=== PATIENT | male | born 1955 | race Caucasian/White ===

== ENCOUNTER 2017-06-29 16:49 | Emergency (ER) | payer BC ==
[~2017-06-29] VITALS: Ht 182.9 cm; Wt 103.9 kg
[~2017-06-29 16:49] MED LIST: ALPR0.25 PO; AMLO1CAP15 PO; ASPI325T11 PO; ATOR10TA PO; CARV3.122 PO; CARV6.252 PO; CLOP75TA PO; FLUT9.9S NS; HYDR-971 PO; HYDR12.58 PO; LEVO500T59 PO; LISI10TA2 PO; MULT-648 PO; OMEG1CAP30 PO; OXYC10TA45 PO; PRED-220 PO; TAMS0.4C2 PO; TAMS0.4C97 PO; UBID100C40 PO; VANC1PLA3 IV
[2017-06-29] MEDS ORDERED: HYDROcodone/APAP 5/325MG 1 TAB TABLET PO ONE (17:45)
--- NOTE | 2017-06-29 17:45 | PHYS DOC ---
Past Medical History Past Medical History: High Cholesterol, Hypertension, PA, Other Additional Past Medical Histor: bladder cancer Past Surgical History: Other Additional Past Surgical Histo: bladder surgery, multiple knee, ortho surgerys , hernia repair; cardiac cath Smoking: Cigarettes, Greater than 1 pack/day Alcohol Use: None Drug Use: None Adult General Chief Complaint Chief Complaint: UPPER EXTREMITY PAIN [facility] HPI Patient is a pleasant 61-year-old male who was working on top of his Jeep today placing a piece of weather stripping along the roof when he asked of the lost his balance landing on his left shoulder and neck. He denies any loss of conscious, denies any numbness and tingling to his hand only a sense of heaviness from his shoulder because it hurts too much left. He's had decreased range of motion since the injury occurred just prior to arrival. He denies any chest pain, shortness of breath, abdominal pain, headache, focal neurologic deficit, or other symptoms. Patient's pain is a moderate 5 out of 10 when he's holding his shoulder in position of comfort but a 10 of 10 with movements. Patient has not taken any medications prior to arrival. The pain is on the lateral left of his neck with no midline tenderness to palpation he admits to no drinking alcohol, denies any drug usage, denies any focal neurologic deficits even transiently or distracting injuries. Was placed in a collar prior to arrival by the nursing staff when he was triaged. Review of Systems Review of Systems Constitutional: Denies fever or chills [] Eyes: Denies change in visual acuity, redness, or eye pain [] HENT: Denies nasal congestion or sore throat [] Respiratory: Denies cough or shortness of breath [] Cardiovascular: No additional information not addressed in HPI [] GI: Denies abdominal pain, nausea, vomiting, bloody stools or diarrhea [] : Denies dysuria or hematuria [] Musculoskeletal: His main complaint is left shoulder pain and left clavicle pain left humeral pain and left neck pain Integument: Denies rash or skin lesions [] Neurologic: Denies headache, focal weakness or sensory changes [] Endocrine: Denies polyuria or polydipsia [] All other systems were reviewed and found to be within normal limits, except as documented in this note. Current Medications Current Medications Current Medications Medications (Trade) Dose Ordered Sig/Marisela Start Time Stop Time Status Last Admin Dose Admin Acetaminophen/ Hydrocodone Bitart (Lortab 5/325) 2 tab 1X ONCE 06/29/17 17:45 06/29/17 17:46 DC 06/29/17 18:13 2 TAB Allergies Allergies Allergies Coded Allergies Type Severity Reaction Last Updated Verified I S O L A T I O N *CONTACT* Allergy Unknown 02/16/16 Yes No Known Medication Allergies Allergy Unknown 02/16/16 Yes Physical Exam Physical Exam Constitutional: Well developed, well nourished, patient is c-collar obvious uncomfortable nontoxic in appearance holding his arm in a position of comfort across his chest wall HENT: Normocephalic, atraumatic, bilateral external ears normal, oropharynx moist, no oral exudates, nose normal. [] Eyes: PERRLA, EOMI, conjunctiva normal, no discharge. [] Neck: She does have some mild tenderness to the lateral aspect of his left neck but does have some midline tenderness to palpation over C5-C6 although there is no obvious signs of trauma after the collar was removed it was replaced and kept in place for the CT scan. Cardiovascular:Heart rate regular rhythm, no murmur [] Lungs & Thorax: Bilateral breath sounds clear to auscultation [] Abdomen: Bowel sounds normal, soft, no tenderness, Skin: Warm, dry, no erythema, no rash. [] Back: he has some significant tenderness over the clavicle anterior portion of the shoulder and the proximal portion of the humerus. He has decreased range of motion secondary to pain with some soft tissue swelling along the clavicle. Extremities, no cyanosis, no clubbing, no edema. he has a well-healed scar on the anterior portion of his left forearm from a prior surgery. Patient has normal sensation to light touch and proprioception over C5-T1 he has intrinsic muscle the hand are intact as well as the lumbricals when tested.[ Is normal range of motion at the elbow and wrist on the left decreased range of motion of the humerus proximally because of pain.] Neurologic: Alert and oriented X 3, normal motor function, normal sensory function, no focal deficits noted. [] Psychologic: Affect normal, judgement normal, mood normal. [] Current Patient Data Vital Signs Vital Signs Date Time Temp Pulse Resp B/P (MAP) Pulse Ox O2 Delivery O2 Flow Rate FiO2 06/29/17 19:00 192/84 (120) 06/29/17 18:13 20 97 06/29/17 18:00 88 Room Air 06/29/17 17:34 98.2 98.2 EKG EKG [] Radiology/Procedures Radiology/Procedures []2 view of the patient's humerus left completed at 6:57 PM 06/29/2017 demonstrates no acute abdomen on within the humerus itself by concern is looking at the glenohumeral rim is at Bankart's lesion. Patient still has marked pain with external rotation and abduction at the shoulder Review shoulder films. At 6:56 PM 06/29/2017 also read by me demonstrate no fracture along the clavicle, the before meals joint looks intact and entirely line. The scapula ribs humerus although contact my concern again is the gleno humeral he will rim with a bankcart's lesion. I've explained my concern to the family and ordered a CT noncontrast of the shoulder to look at this disease process. Patient is feeling more comfortable as long as he does not move his shoulder. [facility] [address] [place] [address] IMAGING REPORT Signed PATIENT: AAMIR ESPARZA ACCOUNT: [id number] : 1955 LOCATION: ER AGE: 61 SEX: M EXAM STATUS: REG ER ORD. PHYSICIAN: CRESENCIO ABEL MD REASON: shoulder pain with suspected fracture PROCEDURE: CT UPPR EXTREMTY WO CONTRST LT CT left shoulder without contrast COMPARISON: Left shoulder x-rays June 29, 2017. HISTORY: Fall, left shoulder pain. FINDINGS: No fracture or dislocation of the shoulder. Mild glenohumeral osteoarthritis with mild glenoid osteophyte and joint space narrowing. Acromioclavicular arthrosis with type II acromial morphology with mild acromion spur and clavicle osteophyte. Noncontrast CT imaging has limited sensitivity for characterization of rotator cuff pathology. Tiny ossicle adjacent of the coracoid. Left coronary calcified plaque. Imaged chest demonstrate pulmonary emphysema. IMPRESSION: No acute osseous injury of the left shoulder. Electronically signed by: Eugenia Rosa MD (06/29/2017 8:15 PM) [facility] DICTATED and SIGNED BY: EUGENIA ROSA MD DATE: 06/29/172008 CC: CRESENCIO ABEL MD; Roderick BAILEY MD ~ [facility] [address] [place] [address] IMAGING REPORT Signed PATIENT: AAMIR ESPARZA ACCOUNT: [id number] : 1955 LOCATION: ER AGE: 61 SEX: M EXAM STATUS: REG ER ORD. PHYSICIAN: CRESENCIO ABEL MD REASON: fall PROCEDURE: CT CERVICAL SPINE WO CONTRAST CT cervical spine without contrast HISTORY: Fall with left neck and shoulder pain. COMPARISON: CT cervical spine December 27, 2003. TECHNIQUE: Helical noncontrast CT imaging of the cervical spine was acquired. FINDINGS: Craniocervical junction intact. ACDF C5-C6 no loosening of the hardware, there is interbody bone fusion present. Cervical vertebral body height and alignment intact. No fracture of the cervical spine. Left apical calcified granuloma. Right mastoid fluid. Maxillary sinus fluid and possible left sinus cyst. Carotid artery calcified plaque. Multilevel disc osteophytes and facet osteophytes with multilevel moderate to severe neural foraminal stenoses, there is spinal canal stenosis at C4-C5 and C6-C7 due to bulky disc osteophytes. Spinal canal stenosis at C5-C6 due to endplate osteophytes status post discectomy. IMPRESSION: 1. No acute osseous injury of the cervical spine. Cervical disc disease. ACDF C5-C6. See discussion above. 2. Right mastoid fluid. 3. Bilateral maxillary sinus fluid could be sinusitis. Exposure: One or more of the following individualized dose reduction techniques were utilized for this examination: 1. Automated exposure control 2. Adjustment of the mA and/or kV according to patient size 3. Use of iterative reconstruction technique Electronically signed by: Eugenia Rosa MD (06/29/2017 6:30 PM) [facility] DICTATED and SIGNED BY: EUGENIA ROSA MD DATE: 06/29/17 2072 CC: CRESENCIO ABEL MD; Roderick BAILEY MD ~ Course & Med Decision Making Course & Med Decision Making Pertinent Labs and Imaging studies reviewed. (See chart for details) []Since shoulder film, humeral film and CT of the neck involved in return. According to the radiologist the CT of the neck demonstrated no occult or acute fracture. Patient was removed from the c-collar at approximately 6:30 PM. Is markedly improved with oral narcotics although pain is still significant with range of motion. Reviewing the films of the shoulder and the humerus my concern is a Bankart's lesion of the left shoulder patient will require CT without contrast to rule out inter-articular fracture. he's been alerted to the requirements of this CAT scan and is waiting the results. Time is now 7:20 PM He is a shoulders, back at approximately 8:30 PM demonstrates no acute fracture with in the shoulder joint. I concern now is given his pain with range of motion is a repeat rotator cuff injury. Understanding also has had a prior history of rotator cuff that particular side unfortunately female reinjured this or shoulder. He'll be given a sling pain medications and follow-up with his orthopedic surgeon to Dr. Bailey's office. Dragon Disclaimer Dragmiranda Disclaimer This electronic medical record was generated, in whole or in part, using a voice recognition dictation system. Departure Departure Impression: Primary Impression: Left shoulder strain Additional Impressions: Injury of left rotator cuff Sprain of cervical neck Disposition: 01 HOME, SELF-CARE Condition: IMPROVED Referrals: Roderick BAILEY MD (PCP) Patient Instructions: Shoulder Instability, Multidirectional with Rehab- [facility], Shoulder Pain, Shoulder Sprain Additional Instructions: discharge: I've spoken with the patient and/or caregivers. I've explained the patient's condition, diagnosis and treatment plan based on information available to me at this time. I've answered the patient's and/or caregivers questions and addressed any concerns. The patient and/or caregivers have a good understanding the patient's diagnosis, condition and treatment plan as can be expected at this point. Vital signs have been stabilized. The patient's condition is stable for discharge from the emergency department. The patient will pursue further outpatient evaluation with her primary care provider or other designated consulting physician as outlined in the discharge instructions. Patient and/or caregivers are agreeable to this plan of care and follow-up instructions have been explained in detail. The patient and/or caregivers have received these instructions in written format and expressed understanding of these discharge instructions. The patient and her caregivers are aware that if any significant change in condition or worsening of symptoms should prompt him to immediately return to this of the closest emergency department. If an emergent department is not readily available I would encourage him to call 911. Scripts Naproxen (NAPROSYN) 500 Mg Tablet 1 TAB PO BID, #14 TAB 1 Refill Prov: CRESENCIO ABEL MD 06/29/17 Hydrocodone Bit/Acetaminophen (HYDROCODONE-APAP 5-325 ) 1 Each Tablet 1-2 TAB PO PRN Q6HRS Y for PAIN for 5 Days, #10 TAB 0 Refills Prov: CRESENCIO ABEL MD 06/29/17 Problem Qualifiers CRESENCIO ABEL MD Jun 29, 2017 17:45
--- NOTE | 2017-06-29 18:34 | RAD ---
CT cervical spine without contrast HISTORY: Fall with left neck and shoulder pain. COMPARISON: CT cervical spine December 27, 2003. TECHNIQUE: Helical noncontrast CT imaging of the cervical spine was acquired. FINDINGS: Craniocervical junction intact. ACDF C5-C6 no loosening of the hardware, there is interbody bone fusion present. Cervical vertebral body height and alignment intact. No fracture of the cervical spine. Left apical calcified granuloma. Right mastoid fluid. Maxillary sinus fluid and possible left sinus cyst. Carotid artery calcified plaque. Multilevel disc osteophytes and facet osteophytes with multilevel moderate to severe neural foraminal stenoses, there is spinal canal stenosis at C4-C5 and C6-C7 due to bulky disc osteophytes. Spinal canal stenosis at C5-C6 due to endplate osteophytes status post discectomy. IMPRESSION: 1. No acute osseous injury of the cervical spine. Cervical disc disease. ACDF C5-C6. See discussion above. 2. Right mastoid fluid. 3. Bilateral maxillary sinus fluid could be sinusitis. Exposure: One or more of the following individualized dose reduction techniques were utilized for this examination: 1. Automated exposure control 2. Adjustment of the mA and/or kV according to patient size 3. Use of iterative reconstruction technique Electronically signed by: Nando Rosa MD (06/29/2017 6:30 PM) [facility]
--- NOTE | 2017-06-29 20:18 | RAD ---
CT left shoulder without contrast COMPARISON: Left shoulder x-rays June 29, 2017. HISTORY: Fall, left shoulder pain. FINDINGS: No fracture or dislocation of the shoulder. Mild glenohumeral osteoarthritis with mild glenoid osteophyte and joint space narrowing. Acromioclavicular arthrosis with type II acromial morphology with mild acromion spur and clavicle osteophyte. Noncontrast CT imaging has limited sensitivity for characterization of rotator cuff pathology. Tiny ossicle adjacent of the coracoid. Left coronary calcified plaque. Imaged chest demonstrate pulmonary emphysema. IMPRESSION: No acute osseous injury of the left shoulder. Electronically signed by: Nando Rosa MD (06/29/2017 8:15 PM) [facility]
--- NOTE | 2017-06-29 20:38 | RAD ---
Left shoulder frontal internal and external rotated and scapular x-rays HISTORY: Fall, left shoulder pain. FINDINGS: No fracture or dislocation of the shoulder. Mild osteoarthritis acromioclavicular joint with mild clavicle osteophyte. Soft tissues unremarkable. IMPRESSION: No acute osseous injury. Electronically signed by: Nando Rosa MD (06/29/2017 8:36 PM) [facility]
[2017-06-29 20:40] VITALS: BP 184/94
[2017-06-29] MEDS ORDERED: NAPR500T PO (20:40)
[2017-06-29] MEDS ORDERED: HYDR-2758 PO (20:40)
--- NOTE | 2017-06-30 08:03 | RAD ---
EXAM: Left humerus 2 views. HISTORY: Fall with left humeral pain. COMPARISON: None. FINDINGS: No fractures are identified. Acromioclavicular osteoarthritis is mild. There appears to be mild superior subluxation of the humerus, though this may be projectional. Joint spaces and alignment of the left elbow appear maintained. Surgical clips project within the proximal forearm. IMPRESSION: 1. No fracture. 2. Correlate for rotator cuff arthropathy.
== END 2017-06-29 20:40 | disposition home or self-care (01) ==
LOC: ER 16:49
DX: S46.012A Strain of muscle(s) and tendon(s) of the rotator cuff of left shoulder, initial encounter (principal); S13.4XXA Sprain of ligaments of cervical spine, initial encounter; E78.00 Pure hypercholesterolemia, unspecified; I10 Essential (primary) hypertension; I25.2 Old myocardial infarction; F17.210 Nicotine dependence, cigarettes, uncomplicated; Z91.041 Radiographic dye allergy status; Z98.890 Other specified postprocedural states; W01.0XXA Fall on same level from slipping, tripping and stumbling without subsequent striking against object, initial encounter; Y93.89 Activity, other specified; Y99.8 Other external cause status; Y92.69 Other specified industrial and construction area as the place of occurrence of the external cause
CPT/HCPCS: 72125; 73030; 73060; 73200; 99284-25

== ENCOUNTER → 2018-01-27 | Outpatient (CLI) | payer BC | END | disposition home or self-care (01) | LOC: US 15:53 | DX: L02.215 Cutaneous abscess of perineum (principal) | CPT/HCPCS: 76870 ==

== ENCOUNTER → 2018-10-07 | Outpatient (CLI) | payer BC ==
[~2018-10-07] MED LIST changes: +AMLO5TAB10 PO; +AMOX1TAB61 PO; +CARV3.1210 PO; -CARV3.122 PO; +CARV6.2511 PO; -CARV6.252 PO; +CONTRAST GIVEN. MC PRN; +HYDR-2761 PO; +HYDR-3164 PO; -HYDR-971 PO; +IOHEXOL 240 MG/ML 50ML VIAL. PO ONE; +IOHEXOL 300 MG/ML 100ML VIAL. IV ONE; +LACT1CAP19 PO; +LISI-130 PO; +NAPR-683 PO; -OXYC10TA45 PO; +OXYC10TA46 PO
--- NOTE | 2018-10-07 17:25 | RAD ---
PQRS Compliance statement: One or more of the following individualized dose reduction techniques were utilized for this examination: 1. Automated exposure control. 2. Adjustment of the mA and/or kV according to patient size. 3. Use of iterative reconstruction technique. Indication:GENERALIZED ABD PAIN, [id number] 60ML, NO PRIORS TECHNIQUE: CT abdomen and pelvis with IV contrast with multiplanar reformats. COMPARISON: None FINDINGS: Heart is normal in size. No pericardial or pleural effusion. Consolidation is seen in the visualized right middle lobe. Liver, spleen, gallbladder, pancreas, kidneys within normal limits. 1.5 x 1.4 cm nodule is seen in the right abdomen gland. Diffuse nodular thickening is seen of the left adrenal gland. Moderate diffuse atherosclerotic disease of the infrarenal aorta and bilateral iliac arteries. No free pelvic fluid or ascites. Sigmoid diverticulosis. Short segment circumferential wall thickening is seen of the proximal sigmoid colon with pericolonic inflammatory changes. No bowel obstruction. The prostate and seminal vesicles show no large mass. Urinary bladder is within normal limits. No suspicious bony lesion. IMPRESSION: 1. Short segment circumferential nodular thickening of the proximal sigmoid colon with pericolonic inflammatory changes likely diverticulitis. Nonemergent colonoscopy recommended after acute phase resolves to rule out underlying mass. 2. Nodular thickening of the bilateral adrenal glands likely adrenal adenoma. Nonemergent MRI of the abdomen with IV contrast recommended for definite confirmation. Electronically signed by: José Roberts DO (10/07/2018 5:22 PM) [facility]
== END | disposition home or self-care (01) ==
LOC: CT 15:28
PROVIDERS: ATTEND Family Medicine
DX: K57.30 Diverticulosis of large intestine without perforation or abscess without bleeding (principal); I70.0 Atherosclerosis of aorta; I70.8 Atherosclerosis of other arteries
CPT/HCPCS: 74177; Q9966; Q9967

== ENCOUNTER 2018-11-20 12:42 | Inpatient (IN) | payer BC ==
[~2018-11-20] VITALS: Ht 172.7 cm; Wt 104.3 kg
[~2018-11-20 12:42] MED LIST changes: -AMLO5TAB10 PO; -AMOX1TAB61 PO; -CONTRAST GIVEN. MC PRN; -IOHEXOL 240 MG/ML 50ML VIAL. PO ONE; -IOHEXOL 300 MG/ML 100ML VIAL. IV ONE; -LACT1CAP19 PO; -LISI-130 PO
[2018-11-20 13:10] LABS: BASO # 0.1 x10^3/uL (0.0-0.2); BASO % 1 % (0-3); EOS # 0.1 x10^3/uL (0.0-0.7); EOS % 1 % (0-3); HEMATOCRIT 47.9 % (39.0-53.0); HEMOGLOBIN 15.9 g/dL (13.0-17.5); LYMPH # 1.9 x10^3/uL (1.0-4.8); LYMPH % 11 % (24-48); MEAN CORPUSCULAR HEMOGLOBIN 32 pg (25-35); MEAN CORPUSCULAR HGB CONC 33 g/dL (31-37); MEAN CORPUSCULAR VOLUME 98 fL (79-100); MONO # 1.6 x10^3/uL (0.0-1.1); MONO % 10 % (0-9); NEUT % 78 % (31-73); PLATELET COUNT 217 x10^3/uL (140-400); RED CELL DISTRIBUTION WIDTH 13.9 % (11.5-14.5); WHITE BLOOD COUNT 16.7 x10^3/uL (4.0-11.0)
[2018-11-20 13:12] LABS: BILIRUBIN,URINE SMALL (NEG); CLARITY,URINE CLEAR; NITRITE,URINE NEGATIVE (NEG); PH,URINE 5.5; PROTEIN,URINE 100 mg/dL (NEG-TRACE); UROBILINOGEN,URINE 0.2 mg/dL (0.2 mg/dL)
[2018-11-20 13:19] LABS: COLOR,URINE YELLOW
[2018-11-20 13:20] LABS: HYALINE CASTS, URINE MODERATE /HPF; SQUAMOUS EPITHELIAL CELL,UR FEW /LPF
[2018-11-20 13:21] LABS: CALCIUM 9.1 mg/dL (8.5-10.1); CREATININE 1.4 mg/dL (0.7-1.3); POTASSIUM 4.1 mmol/L (3.5-5.1)
[2018-11-20 13:23] LABS: BACTERIA,URINE FEW /HPF (0-FEW)
[2018-11-20 13:26] LABS: ALBUMIN 3.8 g/dL (3.4-5.0); DIRECT BILIRUBIN 0.2 mg/dL (0.0-0.2); TOTAL BILIRUBIN 0.6 mg/dL (0.2-1.0); TOTAL PROTEIN 7.5 g/dL (6.4-8.2)
[2018-11-20 13:37] LABS: % ATYL 1 % (0-0); % BANDS 7 % (0-9); % LYMPHS 12 % (24-48); % MONOS 8 % (0-10); % SEGS 72 % (35-66); PLT ESTIMATE ADEQUATE (ADEQUATE)
[2018-11-20] MEDS ORDERED: IOHEXOL 300 MG/ML 100ML VIAL. IV ONE (14:15)
[2018-11-20] MEDS ORDERED: CONTRAST GIVEN. MC PRN (14:30)
[2018-11-20] MEDS ORDERED: IV NORMAL SALINE 1000ML BAG 1,000 ML IV SCH (15:08)
--- NOTE | 2018-11-20 15:09 | RAD ---
Examination: CT ABD PELV W/ IV CONTRST ONLY History: llq pain; Omni 300, 60ml Comparison/Correlation: None Findings: Axial images of the abdomen and pelvis were obtained following IV contrast. Sagittal and coronal reformatted images provided. Visualized lung bases are clear. Liver, spleen, pancreas, and kidneys are unremarkable. Gallbladder fossa is unremarkable. Nodular appearance of the adrenal glands is evident and probably represents a benign adenomatous involvement. Marked inflammatory findings about the proximal sigmoid colon is present. There is fluid noted about the sigmoid colon but no definite loculated collection. Diverticulosis is notable. Small loculated air-fluid collection is evident inferior to the proximal sigmoid colon measuring up to 1.5 cm diameter best seen on coronal image 24 and axial image 73. Few additional droplets of gas are noted about this collection of gas. Urinary bladder is unremarkable. Moderate L5/S1 disc space narrowing is present. The joint degenerative changes of the low lumbar spine from L4 to S1 are evident. Mild prostatomegaly is present with transverse prostate measurement of 5 cm. Impression: Marked sigmoid diverticulitis. Extraluminal gas with compatible with focal perforation. No significant abscess collection. Consider interval follow-up to assess resolution and to exclude mass lesion. Discussed with Dr. Darling of the emergency Department. Prostatomegaly. PQRS Compliance Statement: One or more of the following individualized dose reduction techniques were utilized for this examination: 1. Automated exposure control 2. Adjustment of the mA and/or kV according to patient size 3. Use of iterative reconstruction technique Electronically signed by: Josue Ryan MD (11/20/2018 3:06 PM) [facility]
[2018-11-20] MEDS ORDERED: PIP/TAZO PER PHARMACY MC PRN (15:15)
[2018-11-20] MEDS ORDERED: PIPERACILLIN/TAZOBACTAM 3.375 GM in IV NORMAL SALINE 50ML 50 ML IV ONE (15:45)
--- NOTE | 2018-11-20 16:08 | PHYS DOC ---
Past Medical History Past Medical History: No Pertinent History Additional Past Medical Histor: bladder cancer Past Surgical History: No Surgical History Additional Past Surgical Histo: bladder surgery, multiple knee, ortho surgerys , hernia repair; cardiac cath Alcohol Use: None Drug Use: None Adult General Chief Complaint Chief Complaint: ABDOMINAL PAIN HPI HPI 63-year-old male presenting to the emergency department today with abdominal pain in the left lower quadrant since Friday at about 8 AM. He denies any alleviating or exacerbating factors. It radiates up into his belly and on got worse. It is a sharp shooting pain. It is moderate in severity. He denies vomiting fevers or chills. Past medical history: Hypertension chronic sinusitis hyperlipidemia and history of shoulder. Surgical history: History of heart stenting neck surgery back surgery and knee surgery. He did have a left femoral artery removal with regard to in the past. Social history: Smoker, drinks occasionally. Review of systems is negative for chest pain fevers chills shortness of breath headache. All other review of systems is negative. ED course: 63-year-old male presenting the emergency department today with left lower quadrant abdominal pain. Workup reveals acute diverticulitis with microperforation. No abscess formation. Blood work shows leukocytosis. Urinalysis not suggestive of infection. Chemistry panel shows mildly elevated creatinine. Similar to previous. I spoke with Dr. Pillai our surgeon about the patient at about 3pm. He agrees with plan. Patient was placed nothing by mouth. We will give the patient IV antibiotics started him on IV fluids and obtained a bed in the hospital. Spoke with Dr. Stephens who accepts patient for admission. Basic bridge orders placed. Current Medications Current Medications Current Medications Medications (Trade) Dose Ordered Sig/Marisela Start Time Stop Time Status Last Admin Dose Admin Info (CONTRAST GIVEN -- Rx MONITORING) 1 each PRN DAILY PRN 11/20/18 14:30 11/22/18 14:29 Iohexol (Omnipaque 300 Mg/ml) 60 ml 1X ONCE 11/20/18 14:15 11/20/18 14:33 DC 11/20/18 14:28 60 ML Piperacillin Sod/ Tazobactam Sod (Zosyn Per Pharmacy) 1 each PRN DAILY PRN 11/20/18 15:15 UNV Piperacillin Sod/ Tazobactam Sod 3.375 gm/Sodium Chloride 50 ml @ 100 mls/hr 1X ONCE 11/20/18 15:45 11/20/18 16:14 11/20/18 15:41 100 MLS/HR Sodium Chloride 1,000 ml @ 120 mls/hr Q8H20M 11/20/18 15:08 11/20/18 21:07 11/20/18 15:41 120 MLS/HR Allergies Allergies Allergies Coded Allergies Type Severity Reaction Last Updated Verified I S O L A T I O N *CONTACT* Allergy Unknown 02/16/16 Yes No Known Medication Allergies Allergy Unknown 02/16/16 Yes Physical Exam Physical Exam Constitutional: Well developed, well nourished, no acute distress, non-toxic appearance. [] HENT: Normocephalic, atraumatic, bilateral external ears normal, oropharynx moist, no oral exudates, nose normal. [] Eyes: PERRLA, EOMI, conjunctiva normal, no discharge. [] Neck: Normal range of motion, no tenderness, supple, no stridor. [] Cardiovascular:Heart rate regular rhythm, no murmur [] Lungs & Thorax: Bilateral breath sounds clear to auscultation [] Abdomen: Bowel sounds normal, soft, llq ttp without rebound tenderness or guarding , no masses, no pulsatile masses. [] Skin: Warm, dry, no erythema, no rash. [] Back: No tenderness, no CVA tenderness. [] Extremities: No tenderness, no cyanosis, no clubbing, ROM intact, no edema. [] Neurologic: Alert and oriented X 3, normal motor function, normal sensory function, no focal deficits noted. [] Psychologic: Affect normal, judgement normal, mood normal. [] Current Patient Data Vital Signs Vital Signs Date Time Temp Pulse Resp B/P (MAP) Pulse Ox O2 Delivery O2 Flow Rate FiO2 11/20/18 12:42 97.6 70 16 108/58 (75) 98 Room Air 97.6 Lab Values Laboratory Tests Test 11/20/18 12:45 11/20/18 13:00 Urine Collection Type Unknown Urine Color Yellow Urine Clarity Clear Urine pH 5.5 Urine Specific [place] 1.025 Urine Protein 100 mg/dL (NEG-TRACE) Urine Glucose (UA) Negative mg/dL (NEG) Urine Ketones (Stick) Negative mg/dL (NEG) Urine Blood Negative (NEG) Urine Nitrite Negative (NEG) Urine Bilirubin Small (NEG) Urine Urobilinogen Dipstick 0.2 mg/dL (0.2 mg/dL) Urine Leukocyte Esterase Small (NEG) Urine RBC 3-5 /HPF (0-2) Urine WBC 6-10 /HPF (0-4) Urine Squamous Epithelial Cells Few /LPF Urine Bacteria Few /HPF (0-FEW) Urine Hyaline Casts Moderate /HPF Urine Mucus Marked /LPF White Blood Count 16.7 x10^3/uL (4.0-11.0) H Red Blood Count 4.90 x10^6/uL (4.30-5.70) Hemoglobin 15.9 g/dL (13.0-17.5) Hematocrit 47.9 % (39.0-53.0) Mean Corpuscular Volume 98 fL (79-100) Mean Corpuscular Hemoglobin 32 pg (25-35) Mean Corpuscular Hemoglobin Concent 33 g/dL (31-37) Red Cell Distribution Width 13.9 % (11.5-14.5) Platelet Count 217 x10^3/uL (140-400) Neutrophils (%) (Auto) 78 % (31-73) H Lymphocytes (%) (Auto) 11 % (24-48) L Monocytes (%) (Auto) 10 % (0-9) H Eosinophils (%) (Auto) 1 % (0-3) Basophils (%) (Auto) 1 % (0-3) Neutrophils # (Auto) 13.0 x10^3uL (1.8-7.7) H Lymphocytes # (Auto) 1.9 x10^3/uL (1.0-4.8) Monocytes # (Auto) 1.6 x10^3/uL (0.0-1.1) H Eosinophils # (Auto) 0.1 x10^3/uL (0.0-0.7) Basophils # (Auto) 0.1 x10^3/uL (0.0-0.2) Segmented Neutrophils % 72 % (35-66) H Band Neutrophils % 7 % (0-9) Lymphocytes % 12 % (24-48) L Atypical Lymphocytes % (Manual) 1 % (0-0) H Monocytes % 8 % (0-10) Platelet Estimate Adequate (ADEQUATE) Sodium Level 137 mmol/L (136-145) Potassium Level 4.1 mmol/L (3.5-5.1) Chloride Level 98 mmol/L (98-107) Carbon Dioxide Level 29 mmol/L (21-32) Anion Gap 10 (6-14) Blood Urea Nitrogen 21 mg/dL (8-26) Creatinine 1.4 mg/dL (0.7-1.3) H Estimated GFR (Cockcroft-Gault) 51.0 Glucose Level 112 mg/dL (70-99) H Calcium Level 9.1 mg/dL (8.5-10.1) Total Bilirubin 0.6 mg/dL (0.2-1.0) Direct Bilirubin 0.2 mg/dL (0.0-0.2) Aspartate Amino Transferase (AST) 15 U/L (15-37) Alanine Aminotransferase (ALT) 21 U/L (16-63) Alkaline Phosphatase 68 U/L (46-116) Troponin I Quantitative < 0.017 ng/mL (0.000-0.055) Total Protein 7.5 g/dL (6.4-8.2) Albumin 3.8 g/dL (3.4-5.0) Lipase 331 U/L (73-393) Laboratory Tests 11/20/18 13:00 Laboratory Tests 11/20/18 13:00 EKG EKG [] Radiology/Procedures Radiology/Procedures [] Course & Med Decision Making Course & Med Decision Making Pertinent Labs and Imaging studies reviewed. (See chart for details) [] Dragon Disclaimer Dragon Disclaimer This electronic medical record was generated, in whole or in part, using a voice recognition dictation system. Departure Departure Impression: Primary Impression: Diverticulitis Additional Impression: Perforation bowel Disposition: ADMITTED INPATIENT Admitting Physician: Aidee Stephens Condition: STABLE Referrals: Roderick SAINZ MD (PCP) Problem Qualifiers AMAN KRAUSE MD Nov 20, 2018 16:08
[2018-11-20 20:08] VITALS: BP 132/66
[2018-11-20] MEDS: PIPERACILLIN/TAZOBACTAM 3.375 GM in IV NORMAL SALINE 50ML 50 ML IV SCH (20:20)
[2018-11-20 22:21] VITALS: BP 135/62
[2018-11-21] VITALS (7 sets, daily range): BP systolic 111–160; BP diastolic 43–75
[2018-11-21] MEDS: PIPERACILLIN/TAZOBACTAM 3.375 GM in IV NORMAL SALINE 50ML 50 ML IV SCH ×4 (02:35→17:38)
[2018-11-21] MEDS ORDERED: fentaNYL PF VIAL 100 MCG/2 ML VIAL IV PRN (03:30)
[2018-11-21] MEDS: fentaNYL PF VIAL 100 MCG/2 ML VIAL IV PRN ×4 (03:35→22:25)
[2018-11-21 04:21] LABS: BASO % 0 % (0-3); EOS # 0.1 x10^3/uL (0.0-0.7); EOS % 1 % (0-3); HEMATOCRIT 44.4 % (39.0-53.0); HEMOGLOBIN 14.8 g/dL (13.0-17.5); LYMPH # 1.8 x10^3/uL (1.0-4.8); LYMPH % 16 % (24-48); MEAN CORPUSCULAR HEMOGLOBIN 32 pg (25-35); MEAN CORPUSCULAR HGB CONC 33 g/dL (31-37); MEAN CORPUSCULAR VOLUME 97 fL (79-100); MONO # 1.1 x10^3/uL (0.0-1.1); MONO % 11 % (0-9); NEUT # 7.6 x10^3uL (1.8-7.7); NEUT % 71 % (31-73); PLATELET COUNT 167 x10^3/uL (140-400); RED BLOOD COUNT 4.58 x10^6/uL (4.30-5.70); RED CELL DISTRIBUTION WIDTH 13.6 % (11.5-14.5); WHITE BLOOD COUNT 10.7 x10^3/uL (4.0-11.0)
[2018-11-21 04:47] LABS: CALCIUM 8.5 mg/dL (8.5-10.1); CREATININE 1.4 mg/dL (0.7-1.3); POTASSIUM 3.6 mmol/L (3.5-5.1)
--- NOTE | 2018-11-21 07:29 | NUR ---
Pt wanting to eat and drink during the noc. Pt informed of NPO status due to perforation and possible complications and keeping pain in control at this time. Pt verbalized understanding. Pt continues with IV fluids at this time. No further complaints at this time.
--- NOTE | 2018-11-21 09:45 | PDOC2 ---
CONSULT Date of Consult Date of Consult DATE: 11/21/18 TIME: 08:30 Reason for Consult Reason for Consult: acute diverticulitis with perforation Referring Physician Referring Physician: Dr Bailey Identification/Chief Complaint Chief Complaint LLQ pain Source Source: Chart review, Patient History of Present Illness Reason for Visit: Pt is a 63 yo male with four day hx of LLQ abdominal pain. Seen in the ED last noc and CT showed acute diverticulitis of the sigmoid colon with surrounding inflammation and extraluminal gas. Denies similar previous episode. Has had a colonoscopy and was told "everything's OK, come back in ten years. Past Medical History Cardiovascular: CAD, HTN, [place] Pulmonary: No pertinent hx GI: GERD Heme/Onc: No pertinent hx Hepatobiliary: No pertinent hx Psych: No pertinent hx Musculoskeletal: low back pain, Osteoarthritis Rheumatologic: No pertinent hx Infectious disease: No pertinent hx Renal/: Bladder Ca. Endocrine: Other Past Surgical History Past Surgical History: Other (bladder surgery, multiple ortho procedures) Family History Family History: No Significant Social History <1 pack per day ALCOHOL: none Drugs: None Current Problem List Problem List Problems Medical Problems: (1) Diverticulitis Status: Acute (2) Perforation bowel Status: Acute Current Medications Current Medications Current Medications Iohexol (Omnipaque 300 Mg/ml) 60 ml 1X ONCE IV Last administered on 11/20/18at 14:28; Start 11/20/18 at 14:15; Stop 11/20/18 at 14:33; Status DC Info (CONTRAST GIVEN -- Rx MONITORING) 1 each PRN DAILY PRN MC SEE COMMENTS; Start 11/20/18 at 14:30; Stop 11/22/18 at 14:29 Piperacillin Sod/ Tazobactam Sod (Zosyn Per Pharmacy) 1 each PRN DAILY PRN MC SEE COMMENTS; Start 11/20/18 at 15:15; Status UNV Sodium Chloride 1,000 ml @ 120 mls/hr Q8H20M IV Last administered on at 15:41; Start 11/20/18 at 15:08; Stop 11/20/18 at 21:07; Status DC Piperacillin Sod/ Tazobactam Sod 3.375 gm/Sodium Chloride 50 ml @ 100 mls/hr 1X ONCE IV Last administered on 11/20/18at 15:41; Start 11/20/18 at 15:45; Stop 11/20/18 at 16:14; Status DC Piperacillin Sod/ Tazobactam Sod 3.375 gm/Sodium Chloride 50 ml @ 100 mls/hr Q6HRS IV Last administered on 11/21/18at 07:08; Start 11/20/18 at 18:30 Fentanyl Citrate (Fentanyl 2ml Vial) 50 mcg PRN Q3HRS PRN IV SEVERE PAIN Last administered on 11/21/18at 09:12; Start 11/21/18 at 03:30 Fentanyl Citrate (Fentanyl 2ml Vial) 25 mcg PRN Q3HRS PRN IV MILD PAIN; Start 11/21/18 at 03:30 Active Scripts Active Naprosyn (Naproxen) 500 Mg Tablet 1 Tab PO BID Hydrocodone-Apap 5-325 (Hydrocodone Bit/Acetaminophen) 1 Each Tablet 1-2 Tab PO PRN Q6HRS PRN 5 Days Levaquin (Levofloxacin) 500 Mg Tablet 500 Mg PO DAILY Oxycontin (Oxycodone HCl) 10 Mg Tab.er.12h 10 Mg PO 6 PRN Lipitor (Atorvastatin Calcium) 10 Mg Tablet 1 Tab PO DAILY Aspirin Ec (Aspirin) 325 Mg Tablet.dr 325 Mg PO DAILYWBKFT Reported Flonase Allergy Relief (Fluticasone Propionate) 9.9 Ml [place].susp 2 Sprays NS DAILY Flomax (Tamsulosin Hcl) 0.4 Mg Cap.er.24h 0.4 Mg PO DAILY Carvedilol 6.25 Mg Tablet 1 Tab PO BID Clopidogrel (Clopidogrel Bisulfate) 75 Mg Tablet 75 Mg PO DAILY Prednisone 10 Mg Tablet 10 Mg PO DAILY Lisinopril 10 Mg Tablet 1 Tab PO DAILY Centrum Ultra Men's Tablet (Multivits,Ca,Min/Iron/Fa/Lycop) 1 Each Tablet 1 Each PO DAILY Co Q-10 (Ubidecarenone) 100 Mg Capsule 100 Mg PO DAILY Fish Oil 1,000 Mg Softgel ([place]-3/Dha/Epa/Fish Oil) 1 Each Capsule 2 Each PO DAILY Allergies Allergies: Coded Allergies: I S O L A T I O N *CONTACT* (Verified Allergy, Unknown, 02/16/16) mrsa + No Known Medication Allergies (Verified Allergy, Unknown, 02/16/16) ROS Gastrointestinal: Yes Abdominal Pain Physical Exam General: Alert, No acute distress HEENT: Atraumatic Lungs: Normal air movement Vitals VITALS Vital Signs Date Time Temp Pulse Resp B/P (MAP) Pulse Ox O2 Delivery O2 Flow Rate FiO2 11/21/18 09:12 18 11/21/18 07:50 99.2 84 115/69 (84) 94 Room Air 99.2 Labs Labs Laboratory Tests Test 11/20/18 12:45 11/20/18 13:00 11/20/18 15:33 11/20/18 17:40 Urine Collection Type Unknown Urine Color Yellow Urine Clarity Clear Urine pH 5.5 Urine Specific [place] 1.025 Urine Protein 100 mg/dL (NEG-TRACE) Urine Glucose (UA) Negative mg/dL (NEG) Urine Ketones (Stick) Negative mg/dL (NEG) Urine Blood Negative (NEG) Urine Nitrite Negative (NEG) Urine Bilirubin Small (NEG) Urine Urobilinogen Dipstick 0.2 mg/dL (0.2 mg/dL) Urine Leukocyte Esterase Small (NEG) Urine RBC 3-5 /HPF (0-2) Urine WBC 6-10 /HPF (0-4) Urine Squamous Epithelial Cells Few /LPF Urine Bacteria Few /HPF (0-FEW) Urine Hyaline Casts Moderate /HPF Urine Mucus Marked /LPF White Blood Count 16.7 x10^3/uL (4.0-11.0) Red Blood Count 4.90 x10^6/uL (4.30-5.70) Hemoglobin 15.9 g/dL (13.0-17.5) Hematocrit 47.9 % (39.0-53.0) Mean Corpuscular Volume 98 fL (79-100) Mean Corpuscular Hemoglobin 32 pg (25-35) Mean Corpuscular Hemoglobin Concent 33 g/dL (31-37) Red Cell Distribution Width 13.9 % (11.5-14.5) Platelet Count 217 x10^3/uL (140-400) Neutrophils (%) (Auto) 78 % (31-73) Lymphocytes (%) (Auto) 11 % (24-48) Monocytes (%) (Auto) 10 % (0-9) Eosinophils (%) (Auto) 1 % (0-3) Basophils (%) (Auto) 1 % (0-3) Neutrophils # (Auto) 13.0 x10^3uL (1.8-7.7) Lymphocytes # (Auto) 1.9 x10^3/uL (1.0-4.8) Monocytes # (Auto) 1.6 x10^3/uL (0.0-1.1) Eosinophils # (Auto) 0.1 x10^3/uL (0.0-0.7) Basophils # (Auto) 0.1 x10^3/uL (0.0-0.2) Segmented Neutrophils % 72 % (35-66) Band Neutrophils % 7 % (0-9) Lymphocytes % 12 % (24-48) Atypical Lymphocytes % (Manual) 1 % (0-0) Monocytes % 8 % (0-10) Platelet Estimate Adequate (ADEQUATE) Sodium Level 137 mmol/L (136-145) Potassium Level 4.1 mmol/L (3.5-5.1) Chloride Level 98 mmol/L (98-107) Carbon Dioxide Level 29 mmol/L (21-32) Anion Gap 10 (6-14) Blood Urea Nitrogen 21 mg/dL (8-26) Creatinine 1.4 mg/dL (0.7-1.3) Estimated GFR (Cockcroft-Gault) 51.0 Glucose Level 112 mg/dL (70-99) Calcium Level 9.1 mg/dL (8.5-10.1) Total Bilirubin 0.6 mg/dL (0.2-1.0) Direct Bilirubin 0.2 mg/dL (0.0-0.2) Aspartate Amino Transf (AST/SGOT) 15 U/L (15-37) Alanine Aminotransferase (ALT/SGPT) 21 U/L (16-63) Alkaline Phosphatase 68 U/L (46-116) Troponin I Quantitative < 0.017 ng/mL (0.000-0.055) Total Protein 7.5 g/dL (6.4-8.2) Albumin 3.8 g/dL (3.4-5.0) Lipase 331 U/L (73-393) Lactic Acid Level 1.4 mmol/L (0.4-2.0) 1.0 mmol/L (0.4-2.0) Test 11/21/18 03:30 White Blood Count 10.7 x10^3/uL (4.0-11.0) Red Blood Count 4.58 x10^6/uL (4.30-5.70) Hemoglobin 14.8 g/dL (13.0-17.5) Hematocrit 44.4 % (39.0-53.0) Mean Corpuscular Volume 97 fL (79-100) Mean Corpuscular Hemoglobin 32 pg (25-35) Mean Corpuscular Hemoglobin Concent 33 g/dL (31-37) Red Cell Distribution Width 13.6 % (11.5-14.5) Platelet Count 167 x10^3/uL (140-400) Neutrophils (%) (Auto) 71 % (31-73) Lymphocytes (%) (Auto) 16 % (24-48) Monocytes (%) (Auto) 11 % (0-9) Eosinophils (%) (Auto) 1 % (0-3) Basophils (%) (Auto) 0 % (0-3) Neutrophils # (Auto) 7.6 x10^3uL (1.8-7.7) Lymphocytes # (Auto) 1.8 x10^3/uL (1.0-4.8) Monocytes # (Auto) 1.1 x10^3/uL (0.0-1.1) Eosinophils # (Auto) 0.1 x10^3/uL (0.0-0.7) Basophils # (Auto) 0.0 x10^3/uL (0.0-0.2) Sodium Level 139 mmol/L (136-145) Potassium Level 3.6 mmol/L (3.5-5.1) Chloride Level 103 mmol/L (98-107) Carbon Dioxide Level 25 mmol/L (21-32) Anion Gap 11 (6-14) Blood Urea Nitrogen 19 mg/dL (8-26) Creatinine 1.4 mg/dL (0.7-1.3) Estimated GFR (Cockcroft-Gault) 51.0 Glucose Level 85 mg/dL (70-99) Calcium Level 8.5 mg/dL (8.5-10.1) Laboratory Tests Test 11/20/18 12:45 11/20/18 13:00 11/20/18 15:33 11/20/18 17:40 Urine Collection Type Unknown Urine Color Yellow Urine Clarity Clear Urine pH 5.5 Urine Specific [place] 1.025 Urine Protein 100 mg/dL (NEG-TRACE) Urine Glucose (UA) Negative mg/dL (NEG) Urine Ketones (Stick) Negative mg/dL (NEG) Urine Blood Negative (NEG) Urine Nitrite Negative (NEG) Urine Bilirubin Small (NEG) Urine Urobilinogen Dipstick 0.2 mg/dL (0.2 mg/dL) Urine Leukocyte Esterase Small (NEG) Urine RBC 3-5 /HPF (0-2) Urine WBC 6-10 /HPF (0-4) Urine Squamous Epithelial Cells Few /LPF Urine Bacteria Few /HPF (0-FEW) Urine Hyaline Casts Moderate /HPF Urine Mucus Marked /LPF White Blood Count 16.7 x10^3/uL (4.0-11.0) Red Blood Count 4.90 x10^6/uL (4.30-5.70) Hemoglobin 15.9 g/dL (13.0-17.5) Hematocrit 47.9 % (39.0-53.0) Mean Corpuscular Volume 98 fL (79-100) Mean Corpuscular Hemoglobin 32 pg (25-35) Mean Corpuscular Hemoglobin Concent 33 g/dL (31-37) Red Cell Distribution Width 13.9 % (11.5-14.5) Platelet Count 217 x10^3/uL (140-400) Neutrophils (%) (Auto) 78 % (31-73) Lymphocytes (%) (Auto) 11 % (24-48) Monocytes (%) (Auto) 10 % (0-9) Eosinophils (%) (Auto) 1 % (0-3) Basophils (%) (Auto) 1 % (0-3) Neutrophils # (Auto) 13.0 x10^3uL (1.8-7.7) Lymphocytes # (Auto) 1.9 x10^3/uL (1.0-4.8) Monocytes # (Auto) 1.6 x10^3/uL (0.0-1.1) Eosinophils # (Auto) 0.1 x10^3/uL (0.0-0.7) Basophils # (Auto) 0.1 x10^3/uL (0.0-0.2) Segmented Neutrophils % 72 % (35-66) Band Neutrophils % 7 % (0-9) Lymphocytes % 12 % (24-48) Atypical Lymphocytes % (Manual) 1 % (0-0) Monocytes % 8 % (0-10) Platelet Estimate Adequate (ADEQUATE) Sodium Level 137 mmol/L (136-145) Potassium Level 4.1 mmol/L (3.5-5.1) Chloride Level 98 mmol/L (98-107) Carbon Dioxide Level 29 mmol/L (21-32) Anion Gap 10 (6-14) Blood Urea Nitrogen 21 mg/dL (8-26) Creatinine 1.4 mg/dL (0.7-1.3) Estimated GFR (Cockcroft-Gault) 51.0 Glucose Level 112 mg/dL (70-99) Calcium Level 9.1 mg/dL (8.5-10.1) Total Bilirubin 0.6 mg/dL (0.2-1.0) Direct Bilirubin 0.2 mg/dL (0.0-0.2) Aspartate Amino Transf (AST/SGOT) 15 U/L (15-37) Alanine Aminotransferase (ALT/SGPT) 21 U/L (16-63) Alkaline Phosphatase 68 U/L (46-116) Troponin I Quantitative < 0.017 ng/mL (0.000-0.055) Total Protein 7.5 g/dL (6.4-8.2) Albumin 3.8 g/dL (3.4-5.0) Lipase 331 U/L (73-393) Lactic Acid Level 1.4 mmol/L (0.4-2.0) 1.0 mmol/L (0.4-2.0) Test 11/21/18 03:30 White Blood Count 10.7 x10^3/uL (4.0-11.0) Red Blood Count 4.58 x10^6/uL (4.30-5.70) Hemoglobin 14.8 g/dL (13.0-17.5) Hematocrit 44.4 % (39.0-53.0) Mean Corpuscular Volume 97 fL (79-100) Mean Corpuscular Hemoglobin 32 pg (25-35) Mean Corpuscular Hemoglobin Concent 33 g/dL (31-37) Red Cell Distribution Width 13.6 % (11.5-14.5) Platelet Count 167 x10^3/uL (140-400) Neutrophils (%) (Auto) 71 % (31-73) Lymphocytes (%) (Auto) 16 % (24-48) Monocytes (%) (Auto) 11 % (0-9) Eosinophils (%) (Auto) 1 % (0-3) Basophils (%) (Auto) 0 % (0-3) Neutrophils # (Auto) 7.6 x10^3uL (1.8-7.7) Lymphocytes # (Auto) 1.8 x10^3/uL (1.0-4.8) Monocytes # (Auto) 1.1 x10^3/uL (0.0-1.1) Eosinophils # (Auto) 0.1 x10^3/uL (0.0-0.7) Basophils # (Auto) 0.0 x10^3/uL (0.0-0.2) Sodium Level 139 mmol/L (136-145) Potassium Level 3.6 mmol/L (3.5-5.1) Chloride Level 103 mmol/L (98-107) Carbon Dioxide Level 25 mmol/L (21-32) Anion Gap 11 (6-14) Blood Urea Nitrogen 19 mg/dL (8-26) Creatinine 1.4 mg/dL (0.7-1.3) Estimated GFR (Cockcroft-Gault) 51.0 Glucose Level 85 mg/dL (70-99) Calcium Level 8.5 mg/dL (8.5-10.1) Images Images CT abd/pelvis done on admission is reviewed Assessment/Plan Assessment/Plan LLQ pain 2/2 acute sigmoid diverticulitis with contained perforation CAD smoker hx of bladder cancer Recommend gut rest, IV abx Mr Fisher states "I'm not happy". He feels since he hasn't eaten in five days his colon "should be cleaned out" and wants his problem "fixed now". I explained that I would take him to surgery today with the understanding that he would most probably have a temporary stoma given the extent of the process. D/W Dr Bailey. Will follow. Asked ID to see Thanks for consult RICCARDO WHITNEY MD Nov 21, 2018 09:45
--- NOTE | 2018-11-21 11:36 | PDOC1 ---
History and Physical Date of Admission Date of Admission 11/20/18 Identification/Chief Complaint Chief Complaint abdominal pain, LLQ Source Source: Caregiver, Chart review, Patient History of Present Illness History of Present Illness He had a Paz salad friday for dinner and had acute onset of LLQ pain on Friday that he blamed on constipation and treated with OTC meds but then came to office on and saw STOKER ERECTOR, he still hadn't had a BM by then and she ordered a KUB and results given to me Friday morning. No sign of constipation but he did have LLQ abnormalitiy suggestive of a skin infection. I called him and he described worsening LLQ pain and advised him to come to ER and he did and found to have acute sigmoid diverticulitis with perforation on CT imaging. Admitted and improving clinically with IV antibiotics. He has a hx of COPD, CAD and has had a stent placed by Dr. Meade in his LAD. He is no longer on Plavix or asa. His right inguinal area developed an MRSA abscess as a complication of the heart cath procedure. He has previously had a colonoscopy which showed diverticulosis Past Medical History Cardiovascular: CAD, HTN, [place] Pulmonary: No pertinent hx, COPD GI: Diverticulosis, GERD Heme/Onc: No pertinent hx Hepatobiliary: No pertinent hx Psych: No pertinent hx Rheumatologic: Other (OA) Infectious disease: Other (MRSA) ENT: Sincusitis Renal/: Chronic renal insuff, Bladder Ca. Endocrine: Other Past Surgical History Past Surgical History: Cystoscopy, Other (bladder surgery, multiple ortho procedures) Family History Family History: No Significant Social History Smoke: <1 pack per day ALCOHOL: none Drugs: None Current Problem List Problem List Problems Medical Problems: (1) Diverticulitis Status: Acute (2) Perforation bowel Status: Acute Current Medications Current Medications Current Medications Medications (Trade) Dose Ordered Sig/Marisela Start Time Stop Time Status Last Admin Dose Admin Amino Acids/ Glycerin/ Electrolytes 1,000 ml @ 80 mls/hr [id number] 11/21/18 11:15 UNV Fentanyl Citrate (Fentanyl 2ml Vial) 25 mcg PRN Q3HRS PRN 11/21/18 03:30 Info (CONTRAST GIVEN -- Rx MONITORING) 1 each PRN DAILY PRN 11/20/18 14:30 11/22/18 14:29 Iohexol (Omnipaque 300 Mg/ml) 60 ml 1X ONCE 11/20/18 14:15 11/20/18 14:33 DC 11/20/18 14:28 60 ML Pantoprazole Sodium (PROTONIX VIAL for IV PUSH) 40 mg DAILYAC 11/22/18 07:30 UNV Piperacillin Sod/ Tazobactam Sod (Zosyn Per Pharmacy) 1 each PRN DAILY PRN 11/20/18 15:15 UNV Piperacillin Sod/ Tazobactam Sod 3.375 gm/Sodium Chloride 50 ml @ 100 mls/hr Q6HRS 11/20/18 18:30 11/21/18 07:08 100 MLS/HR Sodium Chloride 1,000 ml @ 120 mls/hr [id number] 11/20/18 15:08 11/20/18 21:07 DC 11/20/18 15:41 120 MLS/HR Allergies Allergies Allergies Coded Allergies Type Severity Reaction Last Updated Verified I S O L A T I O N *CONTACT* Allergy Unknown 02/16/16 Yes No Known Medication Allergies Allergy Unknown 02/16/16 Yes ROS Review of System CONSTITUTIONAL: No fever or chills EYES: No recent changes SKIN: No rash or itching CARDIOVASCULAR: No chest pain, syncope, palpitations, or edema RESPIRATORY: No SOB, + for smoker's cough GASTROINTESTINAL: see HPI NEUROLOGICAL: No headaches or weakness ENDOCRINE: No cold or heat intolerance GENITOURINARY: No urgency or frequency of urination MUSCULOSKELETAL: No back pain or joint pain LYMPHATICS: No enlarged lymph nodes PSYCHIATRIC: No anxiety or depression Physical Exam Physical Exam GEN.: No apparent distress. Alert and oriented. HEENT: Head is normocephalic, atraumatic NECK: Supple. LUNGS: Clear to auscultation. HEART: RRR, S1, S2 present. Peripheral pulses intact ABDOMEN: Soft, LLQ tenderness without peritoneal signs. Positive bowel sounds. EXTREMITIES: Without any cyanosis. NEUROLOGIC: Normal speech, normal tone PSYCHIATRIC: Normal affect, normal mood. SKIN: No ulcerations Vitals Vitals Vital Signs Date Time Temp Pulse Resp B/P (MAP) Pulse Ox O2 Delivery O2 Flow Rate FiO2 11/21/18 09:12 18 11/21/18 08:05 Room Air 11/21/18 07:50 99.2 84 115/69 (84) 94 99.2 Labs Labs Laboratory Tests Test 11/20/18 12:45 11/20/18 13:00 11/20/18 15:33 11/20/18 17:40 Urine Collection Type Unknown Urine Color Yellow Urine Clarity Clear Urine pH 5.5 Urine Specific [place] 1.025 Urine Protein 100 mg/dL (NEG-TRACE) Urine Glucose (UA) Negative mg/dL (NEG) Urine Ketones (Stick) Negative mg/dL (NEG) Urine Blood Negative (NEG) Urine Nitrite Negative (NEG) Urine Bilirubin Small (NEG) Urine Urobilinogen Dipstick 0.2 mg/dL (0.2 mg/dL) Urine Leukocyte Esterase Small (NEG) Urine RBC 3-5 /HPF (0-2) Urine WBC 6-10 /HPF (0-4) Urine Squamous Epithelial Cells Few /LPF Urine Bacteria Few /HPF (0-FEW) Urine Hyaline Casts Moderate /HPF Urine Mucus Marked /LPF White Blood Count 16.7 x10^3/uL (4.0-11.0) Red Blood Count 4.90 x10^6/uL (4.30-5.70) Hemoglobin 15.9 g/dL (13.0-17.5) Hematocrit 47.9 % (39.0-53.0) Mean Corpuscular Volume 98 fL (79-100) Mean Corpuscular Hemoglobin 32 pg (25-35) Mean Corpuscular Hemoglobin Concent 33 g/dL (31-37) Red Cell Distribution Width 13.9 % (11.5-14.5) Platelet Count 217 x10^3/uL (140-400) Neutrophils (%) (Auto) 78 % (31-73) Lymphocytes (%) (Auto) 11 % (24-48) Monocytes (%) (Auto) 10 % (0-9) Eosinophils (%) (Auto) 1 % (0-3) Basophils (%) (Auto) 1 % (0-3) Neutrophils # (Auto) 13.0 x10^3uL (1.8-7.7) Lymphocytes # (Auto) 1.9 x10^3/uL (1.0-4.8) Monocytes # (Auto) 1.6 x10^3/uL (0.0-1.1) Eosinophils # (Auto) 0.1 x10^3/uL (0.0-0.7) Basophils # (Auto) 0.1 x10^3/uL (0.0-0.2) Segmented Neutrophils % 72 % (35-66) Band Neutrophils % 7 % (0-9) Lymphocytes % 12 % (24-48) Atypical Lymphocytes % (Manual) 1 % (0-0) Monocytes % 8 % (0-10) Platelet Estimate Adequate (ADEQUATE) Sodium Level 137 mmol/L (136-145) Potassium Level 4.1 mmol/L (3.5-5.1) Chloride Level 98 mmol/L (98-107) Carbon Dioxide Level 29 mmol/L (21-32) Anion Gap 10 (6-14) Blood Urea Nitrogen 21 mg/dL (8-26) Creatinine 1.4 mg/dL (0.7-1.3) Estimated GFR (Cockcroft-Gault) 51.0 Glucose Level 112 mg/dL (70-99) Calcium Level 9.1 mg/dL (8.5-10.1) Total Bilirubin 0.6 mg/dL (0.2-1.0) Direct Bilirubin 0.2 mg/dL (0.0-0.2) Aspartate Amino Transf (AST/SGOT) 15 U/L (15-37) Alanine Aminotransferase (ALT/SGPT) 21 U/L (16-63) Alkaline Phosphatase 68 U/L (46-116) Troponin I Quantitative < 0.017 ng/mL (0.000-0.055) Total Protein 7.5 g/dL (6.4-8.2) Albumin 3.8 g/dL (3.4-5.0) Lipase 331 U/L (73-393) Lactic Acid Level 1.4 mmol/L (0.4-2.0) 1.0 mmol/L (0.4-2.0) Test 11/21/18 03:30 White Blood Count 10.7 x10^3/uL (4.0-11.0) Red Blood Count 4.58 x10^6/uL (4.30-5.70) Hemoglobin 14.8 g/dL (13.0-17.5) Hematocrit 44.4 % (39.0-53.0) Mean Corpuscular Volume 97 fL (79-100) Mean Corpuscular Hemoglobin 32 pg (25-35) Mean Corpuscular Hemoglobin Concent 33 g/dL (31-37) Red Cell Distribution Width 13.6 % (11.5-14.5) Platelet Count 167 x10^3/uL (140-400) Neutrophils (%) (Auto) 71 % (31-73) Lymphocytes (%) (Auto) 16 % (24-48) Monocytes (%) (Auto) 11 % (0-9) Eosinophils (%) (Auto) 1 % (0-3) Basophils (%) (Auto) 0 % (0-3) Neutrophils # (Auto) 7.6 x10^3uL (1.8-7.7) Lymphocytes # (Auto) 1.8 x10^3/uL (1.0-4.8) Monocytes # (Auto) 1.1 x10^3/uL (0.0-1.1) Eosinophils # (Auto) 0.1 x10^3/uL (0.0-0.7) Basophils # (Auto) 0.0 x10^3/uL (0.0-0.2) Sodium Level 139 mmol/L (136-145) Potassium Level 3.6 mmol/L (3.5-5.1) Chloride Level 103 mmol/L (98-107) Carbon Dioxide Level 25 mmol/L (21-32) Anion Gap 11 (6-14) Blood Urea Nitrogen 19 mg/dL (8-26) Creatinine 1.4 mg/dL (0.7-1.3) Estimated GFR (Cockcroft-Gault) 51.0 Glucose Level 85 mg/dL (70-99) Calcium Level 8.5 mg/dL (8.5-10.1) Laboratory Tests Test 11/20/18 12:45 11/20/18 13:00 11/20/18 15:33 11/20/18 17:40 Urine Collection Type Unknown Urine Color Yellow Urine Clarity Clear Urine pH 5.5 Urine Specific [place] 1.025 Urine Protein 100 mg/dL (NEG-TRACE) Urine Glucose (UA) Negative mg/dL (NEG) Urine Ketones (Stick) Negative mg/dL (NEG) Urine Blood Negative (NEG) Urine Nitrite Negative (NEG) Urine Bilirubin Small (NEG) Urine Urobilinogen Dipstick 0.2 mg/dL (0.2 mg/dL) Urine Leukocyte Esterase Small (NEG) Urine RBC 3-5 /HPF (0-2) Urine WBC 6-10 /HPF (0-4) Urine Squamous Epithelial Cells Few /LPF Urine Bacteria Few /HPF (0-FEW) Urine Hyaline Casts Moderate /HPF Urine Mucus Marked /LPF White Blood Count 16.7 x10^3/uL (4.0-11.0) Red Blood Count 4.90 x10^6/uL (4.30-5.70) Hemoglobin 15.9 g/dL (13.0-17.5) Hematocrit 47.9 % (39.0-53.0) Mean Corpuscular Volume 98 fL (79-100) Mean Corpuscular Hemoglobin 32 pg (25-35) Mean Corpuscular Hemoglobin Concent 33 g/dL (31-37) Red Cell Distribution Width 13.9 % (11.5-14.5) Platelet Count 217 x10^3/uL (140-400) Neutrophils (%) (Auto) 78 % (31-73) Lymphocytes (%) (Auto) 11 % (24-48) Monocytes (%) (Auto) 10 % (0-9) Eosinophils (%) (Auto) 1 % (0-3) Basophils (%) (Auto) 1 % (0-3) Neutrophils # (Auto) 13.0 x10^3uL (1.8-7.7) Lymphocytes # (Auto) 1.9 x10^3/uL (1.0-4.8) Monocytes # (Auto) 1.6 x10^3/uL (0.0-1.1) Eosinophils # (Auto) 0.1 x10^3/uL (0.0-0.7) Basophils # (Auto) 0.1 x10^3/uL (0.0-0.2) Segmented Neutrophils % 72 % (35-66) Band Neutrophils % 7 % (0-9) Lymphocytes % 12 % (24-48) Atypical Lymphocytes % (Manual) 1 % (0-0) Monocytes % 8 % (0-10) Platelet Estimate Adequate (ADEQUATE) Sodium Level 137 mmol/L (136-145) Potassium Level 4.1 mmol/L (3.5-5.1) Chloride Level 98 mmol/L (98-107) Carbon Dioxide Level 29 mmol/L (21-32) Anion Gap 10 (6-14) Blood Urea Nitrogen 21 mg/dL (8-26) Creatinine 1.4 mg/dL (0.7-1.3) Estimated GFR (Cockcroft-Gault) 51.0 Glucose Level 112 mg/dL (70-99) Calcium Level 9.1 mg/dL (8.5-10.1) Total Bilirubin 0.6 mg/dL (0.2-1.0) Direct Bilirubin 0.2 mg/dL (0.0-0.2) Aspartate Amino Transf (AST/SGOT) 15 U/L (15-37) Alanine Aminotransferase (ALT/SGPT) 21 U/L (16-63) Alkaline Phosphatase 68 U/L (46-116) Troponin I Quantitative < 0.017 ng/mL (0.000-0.055) Total Protein 7.5 g/dL (6.4-8.2) Albumin 3.8 g/dL (3.4-5.0) Lipase 331 U/L (73-393) Lactic Acid Level 1.4 mmol/L (0.4-2.0) 1.0 mmol/L (0.4-2.0) Test 11/21/18 03:30 White Blood Count 10.7 x10^3/uL (4.0-11.0) Red Blood Count 4.58 x10^6/uL (4.30-5.70) Hemoglobin 14.8 g/dL (13.0-17.5) Hematocrit 44.4 % (39.0-53.0) Mean Corpuscular Volume 97 fL (79-100) Mean Corpuscular Hemoglobin 32 pg (25-35) Mean Corpuscular Hemoglobin Concent 33 g/dL (31-37) Red Cell Distribution Width 13.6 % (11.5-14.5) Platelet Count 167 x10^3/uL (140-400) Neutrophils (%) (Auto) 71 % (31-73) Lymphocytes (%) (Auto) 16 % (24-48) Monocytes (%) (Auto) 11 % (0-9) Eosinophils (%) (Auto) 1 % (0-3) Basophils (%) (Auto) 0 % (0-3) Neutrophils # (Auto) 7.6 x10^3uL (1.8-7.7) Lymphocytes # (Auto) 1.8 x10^3/uL (1.0-4.8) Monocytes # (Auto) 1.1 x10^3/uL (0.0-1.1) Eosinophils # (Auto) 0.1 x10^3/uL (0.0-0.7) Basophils # (Auto) 0.0 x10^3/uL (0.0-0.2) Sodium Level 139 mmol/L (136-145) Potassium Level 3.6 mmol/L (3.5-5.1) Chloride Level 103 mmol/L (98-107) Carbon Dioxide Level 25 mmol/L (21-32) Anion Gap 11 (6-14) Blood Urea Nitrogen 19 mg/dL (8-26) Creatinine 1.4 mg/dL (0.7-1.3) Estimated GFR (Cockcroft-Gault) 51.0 Glucose Level 85 mg/dL (70-99) Calcium Level 8.5 mg/dL (8.5-10.1) Images Images Examination: CT ABD PELV W/ IV CONTRST ONLY History: llq pain; Omni 300, 60ml Comparison/Correlation: None Findings: Axial images of the abdomen and pelvis were obtained following IV contrast. Sagittal and coronal reformatted images provided. Visualized lung bases are clear. Liver, spleen, pancreas, and kidneys are unremarkable. Gallbladder fossa is unremarkable. Nodular appearance of the adrenal glands is evident and probably represents a benign adenomatous involvement. Marked inflammatory findings about the proximal sigmoid colon is present. There is fluid noted about the sigmoid colon but no definite loculated collection. Diverticulosis is notable. Small loculated air-fluid collection is evident inferior to the proximal sigmoid colon measuring up to 1.5 cm diameter best seen on coronal image 24 and axial image 73. Few additional droplets of gas are noted about this collection of gas. Urinary bladder is unremarkable. Moderate L5/S1 disc space narrowing is present. The joint degenerative changes of the low lumbar spine from L4 to S1 are evident. Mild prostatomegaly is present with transverse prostate measurement of 5 cm. Impression: Marked sigmoid diverticulitis. Extraluminal gas with compatible with focal perforation. No significant abscess collection. Consider interval follow-up to assess resolution and to exclude mass lesion. Discussed with Dr. Darling of the emergency Department. Prostatomegaly. VTE Prophylaxis Ordered VTE Prophylaxis Devices: No VTE Pharmacological Prophylaxi: Yes Assessment/Plan Assessment/Plan acute sigmoid diverticulitis with perforation - surgical consult, ID consult CAD with hx of LAD stent - no recent chest pain - cardiology consult tobacco use disorder COPD CKD hx of cancerous bladder polyp - resected, no recent f/u BPH - on tamsulosin lumbar DJD Roderick SAINZ MD Nov 21, 2018 11:36
--- NOTE | 2018-11-21 11:45 | NUR ---
FACULTY CO-SIGN I have reviewed the documentation by Fred Puente assistant dean of students, [facility]: Addendum: 11/21/18 at 1146 by KELTON ALCALA RN Amended: Links added.
--- NOTE | 2018-11-21 11:50 | RAD ---
Supine abdomen. HISTORY: Diverticulitis Supine view was taken of the abdomen. Bowel pattern appears normal. There is degenerative disc disease and facet arthritis in the lower lumbar spine. An upright view would be necessary to evaluate for free air. There is a small gas collection in the left side of the pelvis which could be bowel gas or a small contained perforation as noted on the CT. IMPRESSION: 1. No bowel obstruction noted. Electronically signed by: Doug Richards MD (11/21/2018 11:47 AM) [facility]
[2018-11-21] MEDS: AMINO AC 3%/ELECTROLYTE/GLYCER 1,000 ML IV SCH (12:00)
--- NOTE | 2018-11-21 12:16 | PDOC ---
Infectious Disease Note Vital Sign Vital Signs Vital Signs Date Time Temp Pulse Resp B/P (MAP) Pulse Ox O2 Delivery O2 Flow Rate FiO2 11/21/18 09:12 18 11/21/18 08:05 Room Air 11/21/18 07:50 99.2 84 115/69 (84) 94 99.2 Labs Lab Laboratory Tests Test 11/20/18 12:45 11/20/18 13:00 11/20/18 15:33 11/20/18 17:40 Urine Collection Type Unknown Urine Color Yellow Urine Clarity Clear Urine pH 5.5 Urine Specific [place] 1.025 Urine Protein 100 mg/dL (NEG-TRACE) Urine Glucose (UA) Negative mg/dL (NEG) Urine Ketones (Stick) Negative mg/dL (NEG) Urine Blood Negative (NEG) Urine Nitrite Negative (NEG) Urine Bilirubin Small (NEG) Urine Urobilinogen Dipstick 0.2 mg/dL (0.2 mg/dL) Urine Leukocyte Esterase Small (NEG) Urine RBC 3-5 /HPF (0-2) Urine WBC 6-10 /HPF (0-4) Urine Squamous Epithelial Cells Few /LPF Urine Bacteria Few /HPF (0-FEW) Urine Hyaline Casts Moderate /HPF Urine Mucus Marked /LPF White Blood Count 16.7 x10^3/uL (4.0-11.0) Red Blood Count 4.90 x10^6/uL (4.30-5.70) Hemoglobin 15.9 g/dL (13.0-17.5) Hematocrit 47.9 % (39.0-53.0) Mean Corpuscular Volume 98 fL (79-100) Mean Corpuscular Hemoglobin 32 pg (25-35) Mean Corpuscular Hemoglobin Concent 33 g/dL (31-37) Red Cell Distribution Width 13.9 % (11.5-14.5) Platelet Count 217 x10^3/uL (140-400) Neutrophils (%) (Auto) 78 % (31-73) Lymphocytes (%) (Auto) 11 % (24-48) Monocytes (%) (Auto) 10 % (0-9) Eosinophils (%) (Auto) 1 % (0-3) Basophils (%) (Auto) 1 % (0-3) Neutrophils # (Auto) 13.0 x10^3uL (1.8-7.7) Lymphocytes # (Auto) 1.9 x10^3/uL (1.0-4.8) Monocytes # (Auto) 1.6 x10^3/uL (0.0-1.1) Eosinophils # (Auto) 0.1 x10^3/uL (0.0-0.7) Basophils # (Auto) 0.1 x10^3/uL (0.0-0.2) Segmented Neutrophils % 72 % (35-66) Band Neutrophils % 7 % (0-9) Lymphocytes % 12 % (24-48) Atypical Lymphocytes % (Manual) 1 % (0-0) Monocytes % 8 % (0-10) Platelet Estimate Adequate (ADEQUATE) Sodium Level 137 mmol/L (136-145) Potassium Level 4.1 mmol/L (3.5-5.1) Chloride Level 98 mmol/L (98-107) Carbon Dioxide Level 29 mmol/L (21-32) Anion Gap 10 (6-14) Blood Urea Nitrogen 21 mg/dL (8-26) Creatinine 1.4 mg/dL (0.7-1.3) Estimated GFR (Cockcroft-Gault) 51.0 Glucose Level 112 mg/dL (70-99) Calcium Level 9.1 mg/dL (8.5-10.1) Total Bilirubin 0.6 mg/dL (0.2-1.0) Direct Bilirubin 0.2 mg/dL (0.0-0.2) Aspartate Amino Transf (AST/SGOT) 15 U/L (15-37) Alanine Aminotransferase (ALT/SGPT) 21 U/L (16-63) Alkaline Phosphatase 68 U/L (46-116) Troponin I Quantitative < 0.017 ng/mL (0.000-0.055) Total Protein 7.5 g/dL (6.4-8.2) Albumin 3.8 g/dL (3.4-5.0) Lipase 331 U/L (73-393) Lactic Acid Level 1.4 mmol/L (0.4-2.0) 1.0 mmol/L (0.4-2.0) Test 11/21/18 03:30 White Blood Count 10.7 x10^3/uL (4.0-11.0) Red Blood Count 4.58 x10^6/uL (4.30-5.70) Hemoglobin 14.8 g/dL (13.0-17.5) Hematocrit 44.4 % (39.0-53.0) Mean Corpuscular Volume 97 fL (79-100) Mean Corpuscular Hemoglobin 32 pg (25-35) Mean Corpuscular Hemoglobin Concent 33 g/dL (31-37) Red Cell Distribution Width 13.6 % (11.5-14.5) Platelet Count 167 x10^3/uL (140-400) Neutrophils (%) (Auto) 71 % (31-73) Lymphocytes (%) (Auto) 16 % (24-48) Monocytes (%) (Auto) 11 % (0-9) Eosinophils (%) (Auto) 1 % (0-3) Basophils (%) (Auto) 0 % (0-3) Neutrophils # (Auto) 7.6 x10^3uL (1.8-7.7) Lymphocytes # (Auto) 1.8 x10^3/uL (1.0-4.8) Monocytes # (Auto) 1.1 x10^3/uL (0.0-1.1) Eosinophils # (Auto) 0.1 x10^3/uL (0.0-0.7) Basophils # (Auto) 0.0 x10^3/uL (0.0-0.2) Sodium Level 139 mmol/L (136-145) Potassium Level 3.6 mmol/L (3.5-5.1) Chloride Level 103 mmol/L (98-107) Carbon Dioxide Level 25 mmol/L (21-32) Anion Gap 11 (6-14) Blood Urea Nitrogen 19 mg/dL (8-26) Creatinine 1.4 mg/dL (0.7-1.3) Estimated GFR (Cockcroft-Gault) 51.0 Glucose Level 85 mg/dL (70-99) Calcium Level 8.5 mg/dL (8.5-10.1) Objective Assessment Acute diverticulitis with perforation and a 1.5 cm abscess sigmoid colon Leukocytosis h/o MRSA CKD CAD Plan Plan of Care Agree with Pato Obtain set BC Monitor WBC/temp Gen surgery following D/w nursing D/w Dr. Pillai D/w Dr. Bailey Thank you [id number] Patient seen and examined. Chart reviewed in detail. 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 Agree with above plan. ESTHELA GUTIERREZ [employer]IV[employer] MACHINE OPERATOR Nov 21, 2018 12:16 HELDER FELICIANO MD Nov 21, 2018 20:34
--- NOTE | 2018-11-21 13:04 | PDOC2 ---
CARDIOLOGY CONSULT NOTE CHEIF COMPLAINT: Abdominal pain HPI: 63-year-old man with past medical history as noted below presenting with abdominal pain. He has been diagnosed with diverticulitis of the sigmoid colon. There plans for possible operative intervention. Cardiology has been asked to risk stratify him prior to his operative intervention. In speaking with the patient he denies any angina but does have exertional dyspnea in the setting of severe back pain issues. 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 He denies any other acute cardiac issues. Remotely he had GI bleeding and therefore he was discontinued off aspirin and Plavix. He reports compliance with his oral antihypertensives. PMHX: 1. Coronary artery disease status post PCI to the LAD 2. Hypertension 3. Tobacco abuse 4. Dyslipidemia 5. Prior history of GI bleed off antiplatelet therapy SOCHX: As noted above. FAMHX: Noncontributory CURRENT MEDS: Current Medications Medications (Trade) Dose Ordered Sig/Marisela Start Time Stop Time Status Last Admin Dose Admin Amino Acids/ Glycerin/ Electrolytes 1,000 ml @ 80 mls/hr [id number] 11/21/18 11:15 11/21/18 12:00 80 MLS/HR Fentanyl Citrate (Fentanyl 2ml Vial) 25 mcg PRN Q3HRS PRN 11/21/18 03:30 Info (CONTRAST GIVEN -- Rx MONITORING) 1 each PRN DAILY PRN 11/20/18 14:30 11/22/18 14:29 Iohexol (Omnipaque 300 Mg/ml) 60 ml 1X ONCE 11/20/18 14:15 11/20/18 14:33 DC 11/20/18 14:28 60 ML Pantoprazole Sodium (PROTONIX VIAL for IV PUSH) 40 mg DAILYAC 11/22/18 07:30 Piperacillin Sod/ Tazobactam Sod (Zosyn Per Pharmacy) 1 each PRN DAILY PRN 11/20/18 15:15 UNV Piperacillin Sod/ Tazobactam Sod 3.375 gm/Sodium Chloride 50 ml @ 100 mls/hr Q6HRS 11/20/18 18:30 11/21/18 11:59 100 MLS/HR Sodium Chloride 1,000 ml @ 120 mls/hr [id number] 11/20/18 15:08 11/20/18 21:07 DC 11/20/18 15:41 120 MLS/HR ALLERGIES: Allergies Coded Allergies Type Severity Reaction Last Updated Verified I S O L A T I O N *CONTACT* Allergy Unknown 02/16/16 Yes No Known Medication Allergies Allergy Unknown 02/16/16 Yes ROS: Negative for 10 out of 14 systems reviewed unless otherwise mentioned above in history of present illness. PHYSICAL EXAM: Vital Signs: Vital Signs Date Time Temp Pulse Resp B/P (MAP) Pulse Ox O2 Delivery O2 Flow Rate FiO2 11/21/18 11:51 Room Air 11/21/18 11:49 98.1 84 18 115/69 (84) 94 98.1 I & O Intake and Output 11/21/18 07:00 Output Total 500 ml Balance -500 ml Output Urine Total 500 ml # Voids 1 Physical Exam: GEN.: No apparent distress. Alert and oriented. HEENT: Head is normocephalic, atraumatic NECK: Supple. LUNGS: Bilateral significant and expiratory wheezing HEART: RRR, S1, S2 present. Peripheral pulses intact ABDOMEN: Soft with mild left lower quadrant tenderness. EXTREMITIES: Without any cyanosis. NEUROLOGIC: Normal speech, normal tone PSYCHIATRIC: Normal affect, normal mood. SKIN: No ulcerations DIAGNOSTIC TESTING: Cardiac enzymes are negative. Creatinine is mildly elevated at 1.4. Hemoglobin, platelets within normal limits. EKG is not currently available for review. ASSESSMENT: 1. Left lower quadrant abdominal pain consistent with diverticulitis with plans for possible operative intervention 2. Known coronary artery disease currently stable without angina, with prior echocardiogram demonstrating normal LV function 3. Hypertension 4. Severe tobacco abuse PLAN: 1. He would be deemed moderate risk for intra-abdominal surgery in light of his risk factors 2. Obtain EKG and echocardiogram but these are not necessary prior to operative intervention if this is urgent 3. Continue home antihypertensives and monitor blood pressure. Will need to discuss with the primary team regarding his history of GI bleed and the reasons for why he is not on aspirin therapy. Consider statin therapy on an outpatient basis. Supportive care. BROOKS HEATH MD Nov 21, 2018 13:04
[2018-11-22] MEDS: PIPERACILLIN/TAZOBACTAM 3.375 GM in IV NORMAL SALINE 50ML 50 ML IV SCH ×4 (00:39→18:17)
[2018-11-22] MEDS: AMINO AC 3%/ELECTROLYTE/GLYCER 1,000 ML IV SCH ×2 (00:40→16:26)
--- NOTE | 2018-11-22 02:18 | CONS ---
DATE OF CONSULTATION: 11/21/2018 DICTATED BY: This is Levon Amaya, nurse practitioner, dictating for Dr. Helder Feliciano, Infectious Disease. REFERRING PHYSICIAN: Dr. Pillai. REASON FOR CONSULTATION: Perforated diverticulitis. HISTORY OF PRESENT ILLNESS: This patient is a 63-year-old male with a PMH, coronary artery disease, chronic kidney disease and hypertension. 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 He continued to work through the pain. Later that afternoon, he developed chills and subjective fevers. He had lost his appetite. He thought initially he was constipated and took "a bunch of stool softeners and milk of magnesia" with no improvement of pain. He was referred to the ER by his primary care provider. He was found to have elevated white blood cell count of 16,700, lipase 331 and lactic acid of 1.4. Abdominal/pelvis CT with IV contrast revealed acute diverticulitis with perforation and a 1.5 cm fluid collection to the proximal sigmoid colon. He has been evaluated by General Surgery, Dr. Pillai. He is now on bowel rest and he is currently getting Zosyn. The patient says that his pain has shortly shifted to his left lower quadrant area and is not as intense as when it first started. He has not eaten or drank anything since yesterday and feels hungry at times. His fevers and chills have settled down. He denies nausea or vomiting. His stools were little bit runny after having all the laxatives. PAST MEDICAL HISTORY: 1. MRSA abscess, left groin. 2. Coronary artery disease. 3. Chronic kidney disease. 4. Hyperlipidemia. 5. Hypertension. 6. BPH. 7. Gout. 8. Back pain. 9. COPD. 10. GERD. 11. Osteoarthritis. PAST SURGICAL HISTORY: 1. Bladder polyp removal. 2. Removal of a fibrous growth left arm. 3. Cervical fusion with steel plate. 4. Tonsillectomy. 5. Bilateral knee arthroscopy. 6. Sinus surgery. 7. Removal of infected Angio-Seal closure device. 8. Debridement of arteriotomy and vein patch closure using ipsilateral proximal great cephalic vein for a left groin abscess with femoral arteritis in 07/2015. 9. Rotator cuff repair. 10. Hernia repair. SOCIAL HISTORY: The patient is and lives at home. 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 SOCIAL HISTORY: He is a current smoker. FAMILY HISTORY: Noncontributory. ALLERGIES: No known drug allergies. MEDICATIONS: Zosyn, fentanyl p.r.n., Protonix, IV fluids. REVIEW OF SYSTEMS: Per HPI, otherwise all other review of systems are negative. PHYSICAL EXAMINATION: VITAL SIGNS: Temperature 99.2, blood pressure 115/69, heart rate 84, respiratory rate 18, pulse oximetry is 94% on room air. BMI 26. GENERAL: The patient is propped up in bed, alert, relaxed appearance. HEENT: Pupils equally round. Normal conjunctivae. Oral cavity: Pharynx pink and moist. Dentures in place. NECK: Supple. LUNGS: Clear to auscultation. HEART: S1 and S2. ABDOMEN: Obese, soft, mildly tender with bowel sounds present. EXTREMITIES: No gross edema or cyanosis. SKIN: Warm without rash. NEUROLOGIC: Alert and oriented x 3. LABORATORY DATA: Today's WBC 10.7 from 16.7, hemoglobin 14.8, platelets 167,000. Creatinine 1.4. BUN 19. Electrolytes are unremarkable. Glucose 85. Lactic acid 1.0. AST 15, ALT 21, total bilirubin 0.6. Lipase 331. Troponin less than 0.017, albumin 3.8. CT abdomen/pelvis with IV contrast per HPI. Urinalysis is unremarkable for infection. KUB pending. IMPRESSION: 1. Acute diverticulitis with perforation and 1.5 cm abscess of sigmoid colon. 2. Leukocytosis. 3. History of methicillin-resistant Staphylococcus aureus. 4. Chronic kidney disease. 5. Coronary artery disease. PLAN: Agree with Zosyn. We will also obtain a set of blood cultures. Continue to monitor WBC count and temperature. General Surgery is following. Supportive care. Thank you, Dr. Pillai for asking us to participate in this patient's care. Should you have further questions or concerns, please call. HELDER FELICIANO MD DR: SARAH BETH/randi JOB#: [id number] / [id number]
[2018-11-22 03:30] VITALS: BP 104/56
[2018-11-22 07:22] LABS: BASO % 1 % (0-3); EOS # 0.2 x10^3/uL (0.0-0.7); EOS % 3 % (0-3); HEMATOCRIT 46.3 % (39.0-53.0); HEMOGLOBIN 15.3 g/dL (13.0-17.5); LYMPH # 1.4 x10^3/uL (1.0-4.8); LYMPH % 16 % (24-48); MEAN CORPUSCULAR HEMOGLOBIN 32 pg (25-35); MEAN CORPUSCULAR HGB CONC 33 g/dL (31-37); MEAN CORPUSCULAR VOLUME 98 fL (79-100); MONO # 0.9 x10^3/uL (0.0-1.1); MONO % 10 % (0-9); NEUT # 6.1 x10^3uL (1.8-7.7); NEUT % 70 % (31-73); PLATELET COUNT 192 x10^3/uL (140-400); RED BLOOD COUNT 4.75 x10^6/uL (4.30-5.70); RED CELL DISTRIBUTION WIDTH 13.6 % (11.5-14.5); WHITE BLOOD COUNT 8.7 x10^3/uL (4.0-11.0)
[2018-11-22 07:30] VITALS: BP 123/75
[2018-11-22 07:58] LABS: ALBUMIN 3.1 g/dL (3.4-5.0); ALBUMIN/GLOBULIN RATIO 0.7 (1.0-1.7); CALCIUM 9.1 mg/dL (8.5-10.1); CREATININE 1.1 mg/dL (0.7-1.3); GFR 67.4; POTASSIUM 4.1 mmol/L (3.5-5.1); TOTAL BILIRUBIN 0.5 mg/dL (0.2-1.0); TOTAL PROTEIN 7.3 g/dL (6.4-8.2)
[2018-11-22] MEDS: PANTOPRAZOLE IV PUSH 40 MG VIAL. IVP SCH (08:55)
--- NOTE | 2018-11-22 10:15 | PDOC ---
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" Vital Signs Vital Signs Date Time Temp Pulse Resp B/P (MAP) Pulse Ox O2 Delivery O2 Flow Rate FiO2 11/22/18 07:30 97.8 103 17 123/75 (91) 94 Room Air 97.8 I&O Intake and Output 11/22/18 06:59 Intake Total 1100 ml Balance 1100 ml Intake Oral 0 ml IV Total 1100 ml # Voids 5 PATIENT HAS A MARIN: No General: Alert, No acute distress Labs Laboratory Tests Test 11/20/18 12:45 11/20/18 13:00 11/20/18 15:33 11/20/18 17:40 Urine Collection Type Unknown Urine Color Yellow Urine Clarity Clear Urine pH 5.5 Urine Specific [place] 1.025 Urine Protein 100 mg/dL (NEG-TRACE) Urine Glucose (UA) Negative mg/dL (NEG) Urine Ketones (Stick) Negative mg/dL (NEG) Urine Blood Negative (NEG) Urine Nitrite Negative (NEG) Urine Bilirubin Small (NEG) Urine Urobilinogen Dipstick 0.2 mg/dL (0.2 mg/dL) Urine Leukocyte Esterase Small (NEG) Urine RBC 3-5 /HPF (0-2) Urine WBC 6-10 /HPF (0-4) Urine Squamous Epithelial Cells Few /LPF Urine Bacteria Few /HPF (0-FEW) Urine Hyaline Casts Moderate /HPF Urine Mucus Marked /LPF White Blood Count 16.7 x10^3/uL (4.0-11.0) Red Blood Count 4.90 x10^6/uL (4.30-5.70) Hemoglobin 15.9 g/dL (13.0-17.5) Hematocrit 47.9 % (39.0-53.0) Mean Corpuscular Volume 98 fL (79-100) Mean Corpuscular Hemoglobin 32 pg (25-35) Mean Corpuscular Hemoglobin Concent 33 g/dL (31-37) Red Cell Distribution Width 13.9 % (11.5-14.5) Platelet Count 217 x10^3/uL (140-400) Neutrophils (%) (Auto) 78 % (31-73) Lymphocytes (%) (Auto) 11 % (24-48) Monocytes (%) (Auto) 10 % (0-9) Eosinophils (%) (Auto) 1 % (0-3) Basophils (%) (Auto) 1 % (0-3) Neutrophils # (Auto) 13.0 x10^3uL (1.8-7.7) Lymphocytes # (Auto) 1.9 x10^3/uL (1.0-4.8) Monocytes # (Auto) 1.6 x10^3/uL (0.0-1.1) Eosinophils # (Auto) 0.1 x10^3/uL (0.0-0.7) Basophils # (Auto) 0.1 x10^3/uL (0.0-0.2) Segmented Neutrophils % 72 % (35-66) Band Neutrophils % 7 % (0-9) Lymphocytes % 12 % (24-48) Atypical Lymphocytes % (Manual) 1 % (0-0) Monocytes % 8 % (0-10) Platelet Estimate Adequate (ADEQUATE) Sodium Level 137 mmol/L (136-145) Potassium Level 4.1 mmol/L (3.5-5.1) Chloride Level 98 mmol/L (98-107) Carbon Dioxide Level 29 mmol/L (21-32) Anion Gap 10 (6-14) Blood Urea Nitrogen 21 mg/dL (8-26) Creatinine 1.4 mg/dL (0.7-1.3) Estimated GFR (Cockcroft-Gault) 51.0 Glucose Level 112 mg/dL (70-99) Calcium Level 9.1 mg/dL (8.5-10.1) Total Bilirubin 0.6 mg/dL (0.2-1.0) Direct Bilirubin 0.2 mg/dL (0.0-0.2) Aspartate Amino Transf (AST/SGOT) 15 U/L (15-37) Alanine Aminotransferase (ALT/SGPT) 21 U/L (16-63) Alkaline Phosphatase 68 U/L (46-116) Troponin I Quantitative < 0.017 ng/mL (0.000-0.055) Total Protein 7.5 g/dL (6.4-8.2) Albumin 3.8 g/dL (3.4-5.0) Lipase 331 U/L (73-393) Lactic Acid Level 1.4 mmol/L (0.4-2.0) 1.0 mmol/L (0.4-2.0) Test 4/13/19 03:30 11/22/18 06:40 White Blood Count 10.7 x10^3/uL (4.0-11.0) 8.7 x10^3/uL (4.0-11.0) Red Blood Count 4.58 x10^6/uL (4.30-5.70) 4.75 x10^6/uL (4.30-5.70) Hemoglobin 14.8 g/dL (13.0-17.5) 15.3 g/dL (13.0-17.5) Hematocrit 44.4 % (39.0-53.0) 46.3 % (39.0-53.0) Mean Corpuscular Volume 97 fL (79-100) 98 fL (79-100) Mean Corpuscular Hemoglobin 32 pg (25-35) 32 pg (25-35) Mean Corpuscular Hemoglobin Concent 33 g/dL (31-37) 33 g/dL (31-37) Red Cell Distribution Width 13.6 % (11.5-14.5) 13.6 % (11.5-14.5) Platelet Count 167 x10^3/uL (140-400) 192 x10^3/uL (140-400) Neutrophils (%) (Auto) 71 % (31-73) 70 % (31-73) Lymphocytes (%) (Auto) 16 % (24-48) 16 % (24-48) Monocytes (%) (Auto) 11 % (0-9) 10 % (0-9) Eosinophils (%) (Auto) 1 % (0-3) 3 % (0-3) Basophils (%) (Auto) 0 % (0-3) 1 % (0-3) Neutrophils # (Auto) 7.6 x10^3uL (1.8-7.7) 6.1 x10^3uL (1.8-7.7) Lymphocytes # (Auto) 1.8 x10^3/uL (1.0-4.8) 1.4 x10^3/uL (1.0-4.8) Monocytes # (Auto) 1.1 x10^3/uL (0.0-1.1) 0.9 x10^3/uL (0.0-1.1) Eosinophils # (Auto) 0.1 x10^3/uL (0.0-0.7) 0.2 x10^3/uL (0.0-0.7) Basophils # (Auto) 0.0 x10^3/uL (0.0-0.2) 0.0 x10^3/uL (0.0-0.2) Sodium Level 139 mmol/L (136-145) 140 mmol/L (136-145) Potassium Level 3.6 mmol/L (3.5-5.1) 4.1 mmol/L (3.5-5.1) Chloride Level 103 mmol/L (98-107) 103 mmol/L (98-107) Carbon Dioxide Level 25 mmol/L (21-32) 25 mmol/L (21-32) Anion Gap 11 (6-14) 12 (6-14) Blood Urea Nitrogen 19 mg/dL (8-26) 19 mg/dL (8-26) Creatinine 1.4 mg/dL (0.7-1.3) 1.1 mg/dL (0.7-1.3) Estimated GFR (Cockcroft-Gault) 51.0 67.4 Glucose Level 85 mg/dL (70-99) 91 mg/dL (70-99) Calcium Level 8.5 mg/dL (8.5-10.1) 9.1 mg/dL (8.5-10.1) BUN/Creatinine Ratio 17 (6-20) Total Bilirubin 0.5 mg/dL (0.2-1.0) Aspartate Amino Transf (AST/SGOT) 20 U/L (15-37) Alanine Aminotransferase (ALT/SGPT) 24 U/L (16-63) Alkaline Phosphatase 55 U/L (46-116) Total Protein 7.3 g/dL (6.4-8.2) Albumin 3.1 g/dL (3.4-5.0) Albumin/Globulin Ratio 0.7 (1.0-1.7) Laboratory Tests Test 11/22/18 06:40 White Blood Count 8.7 x10^3/uL (4.0-11.0) Red Blood Count 4.75 x10^6/uL (4.30-5.70) Hemoglobin 15.3 g/dL (13.0-17.5) Hematocrit 46.3 % (39.0-53.0) Mean Corpuscular Volume 98 fL (79-100) Mean Corpuscular Hemoglobin 32 pg (25-35) Mean Corpuscular Hemoglobin Concent 33 g/dL (31-37) Red Cell Distribution Width 13.6 % (11.5-14.5) Platelet Count 192 x10^3/uL (140-400) Neutrophils (%) (Auto) 70 % (31-73) Lymphocytes (%) (Auto) 16 % (24-48) Monocytes (%) (Auto) 10 % (0-9) Eosinophils (%) (Auto) 3 % (0-3) Basophils (%) (Auto) 1 % (0-3) Neutrophils # (Auto) 6.1 x10^3uL (1.8-7.7) Lymphocytes # (Auto) 1.4 x10^3/uL (1.0-4.8) Monocytes # (Auto) 0.9 x10^3/uL (0.0-1.1) Eosinophils # (Auto) 0.2 x10^3/uL (0.0-0.7) Basophils # (Auto) 0.0 x10^3/uL (0.0-0.2) Sodium Level 140 mmol/L (136-145) Potassium Level 4.1 mmol/L (3.5-5.1) Chloride Level 103 mmol/L (98-107) Carbon Dioxide Level 25 mmol/L (21-32) Anion Gap 12 (6-14) Blood Urea Nitrogen 19 mg/dL (8-26) Creatinine 1.1 mg/dL (0.7-1.3) Estimated GFR (Cockcroft-Gault) 67.4 BUN/Creatinine Ratio 17 (6-20) Glucose Level 91 mg/dL (70-99) Calcium Level 9.1 mg/dL (8.5-10.1) Total Bilirubin 0.5 mg/dL (0.2-1.0) Aspartate Amino Transf (AST/SGOT) 20 U/L (15-37) Alanine Aminotransferase (ALT/SGPT) 24 U/L (16-63) Alkaline Phosphatase 55 U/L (46-116) Total Protein 7.3 g/dL (6.4-8.2) Albumin 3.1 g/dL (3.4-5.0) Albumin/Globulin Ratio 0.7 (1.0-1.7) Problem List Problems Medical Problems: (1) Diverticulitis Status: Acute (2) Perforation bowel Status: Acute Assessment/Plan acute sigmoid diverticulitis continue abx start alecs RICCARDO WHITNEY MD Nov 22, 2018 10:15
[2018-11-22 11:08] VITALS: BP 157/73
--- NOTE | 2018-11-22 11:48 | PDOC ---
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 Normal conjunctivae. Oral cavity/ pharynx pink and moist. Dentures in place. NECK: Supple. LUNGS: Clear to auscultation. HEART: S1 and S2. ABDOMEN: Obese, soft, mildly tender with bowel sounds present. EXTREMITIES: No gross edema or cyanosis. SKIN: Warm without rash. NEUROLOGIC: Alert and oriented x 3. Labs Lab Laboratory Tests Test 11/22/18 06:40 White Blood Count 8.7 x10^3/uL (4.0-11.0) Red Blood Count 4.75 x10^6/uL (4.30-5.70) Hemoglobin 15.3 g/dL (13.0-17.5) Hematocrit 46.3 % (39.0-53.0) Mean Corpuscular Volume 98 fL (79-100) Mean Corpuscular Hemoglobin 32 pg (25-35) Mean Corpuscular Hemoglobin Concent 33 g/dL (31-37) Red Cell Distribution Width 13.6 % (11.5-14.5) Platelet Count 192 x10^3/uL (140-400) Neutrophils (%) (Auto) 70 % (31-73) Lymphocytes (%) (Auto) 16 % (24-48) Monocytes (%) (Auto) 10 % (0-9) Eosinophils (%) (Auto) 3 % (0-3) Basophils (%) (Auto) 1 % (0-3) Neutrophils # (Auto) 6.1 x10^3uL (1.8-7.7) Lymphocytes # (Auto) 1.4 x10^3/uL (1.0-4.8) Monocytes # (Auto) 0.9 x10^3/uL (0.0-1.1) Eosinophils # (Auto) 0.2 x10^3/uL (0.0-0.7) Basophils # (Auto) 0.0 x10^3/uL (0.0-0.2) Sodium Level 140 mmol/L (136-145) Potassium Level 4.1 mmol/L (3.5-5.1) Chloride Level 103 mmol/L (98-107) Carbon Dioxide Level 25 mmol/L (21-32) Anion Gap 12 (6-14) Blood Urea Nitrogen 19 mg/dL (8-26) Creatinine 1.1 mg/dL (0.7-1.3) Estimated GFR (Cockcroft-Gault) 67.4 BUN/Creatinine Ratio 17 (6-20) Glucose Level 91 mg/dL (70-99) Calcium Level 9.1 mg/dL (8.5-10.1) Total Bilirubin 0.5 mg/dL (0.2-1.0) Aspartate Amino Transf (AST/SGOT) 20 U/L (15-37) Alanine Aminotransferase (ALT/SGPT) 24 U/L (16-63) Alkaline Phosphatase 55 U/L (46-116) Total Protein 7.3 g/dL (6.4-8.2) Albumin 3.1 g/dL (3.4-5.0) Albumin/Globulin Ratio 0.7 (1.0-1.7) KUB 1. No bowel obstruction noted. Micro URINE CULTURE RES 1 Final No growth Objective Assessment Acute diverticulitis with perforation and a 1.5 cm abscess sigmoid colon Leukocytosis, better h/o MRSA CKD CAD Plan Plan of Care Continue Zosyn pending Monitor WBC/temp Gen surgery following ESTHELA GUTIERREZ [employer] TECHNICIAN Nov 22, 2018 11:48 HELDER FELICIANO MD Nov 22, 2018 18:56
--- NOTE | 2018-11-22 13:00 | PDOC ---
PROGRESS NOTES Subjective Tolerating clear liquids, pain better, Tmax 99.8, no chest pain, chronic cough present, complaining of back pain but has relief with fentanyl Objective General: pleasant Heart: RRR Lungs: CTA Abd: soft, LLQ tenderness, no peritoneal signs Ext: no C/C/E WBC: 8.7 Hgb: 15.3 K+: 4.1 Creat: 1.1 Vital Signs Vital Signs Date Time Temp Pulse Resp B/P (MAP) Pulse Ox O2 Delivery O2 Flow Rate FiO2 11/22/18 11:08 98.4 100 18 157/73 (101) 96 Room Air 98.4 I & O Intake and Output 11/22/18 07:00 Intake Total 1100 ml Balance 1100 ml Intake Oral 0 ml IV Total 1100 ml # Voids 5 Assessment and Plan acute sigmoid diverticulitis with perforation - surgical consult, ID consult - clinically improving with conservative treatment, recheck CT tomorrow to assess abscess, continue Procalamine, start clear liquid diet CAD with hx of LAD stent - no recent chest pain - cardiology consulted tobacco use disorder COPD CKD - back to baseline hx of cancerous bladder polyp - resected, no recent f/u BPH - on tamsulosin lumbar DJD Roderick SAINZ MD Nov 22, 2018 13:00
[2018-11-22 15:40] VITALS: BP 165/84
[2018-11-22 19:50] VITALS: BP 139/82
[2018-11-22] MEDS: fentaNYL PF VIAL 100 MCG/2 ML VIAL IV PRN (20:59)
[2018-11-22 22:51] VITALS: BP 133/69
[2018-11-23] VITALS (7 sets, daily range): BP systolic 97–175; BP diastolic 50–82
[2018-11-23 04:44] LABS: BASO # 0.1 x10^3/uL (0.0-0.2); BASO % 1 % (0-3); EOS # 0.3 x10^3/uL (0.0-0.7); EOS % 3 % (0-3); HEMATOCRIT 44.1 % (39.0-53.0); HEMOGLOBIN 14.6 g/dL (13.0-17.5); LYMPH # 1.8 x10^3/uL (1.0-4.8); LYMPH % 20 % (24-48); MEAN CORPUSCULAR HEMOGLOBIN 32 pg (25-35); MEAN CORPUSCULAR HGB CONC 33 g/dL (31-37); MEAN CORPUSCULAR VOLUME 97 fL (79-100); MONO % 12 % (0-9); NEUT # 5.7 x10^3uL (1.8-7.7); NEUT % 65 % (31-73); PLATELET COUNT 188 x10^3/uL (140-400); RED BLOOD COUNT 4.56 x10^6/uL (4.30-5.70); RED CELL DISTRIBUTION WIDTH 13.4 % (11.5-14.5); WHITE BLOOD COUNT 8.8 x10^3/uL (4.0-11.0)
[2018-11-23 05:03] LABS: ALBUMIN 2.9 g/dL (3.4-5.0); ALBUMIN/GLOBULIN RATIO 0.7 (1.0-1.7); CALCIUM 8.9 mg/dL (8.5-10.1); CREATININE 1.2 mg/dL (0.7-1.3); POTASSIUM 3.8 mmol/L (3.5-5.1); TOTAL BILIRUBIN 0.5 mg/dL (0.2-1.0); TOTAL PROTEIN 6.8 g/dL (6.4-8.2)
[2018-11-23] MEDS: AMINO AC 3%/ELECTROLYTE/GLYCER 1,000 ML IV SCH ×3 (05:59→23:32)
[2018-11-23] MEDS: PIPERACILLIN/TAZOBACTAM 3.375 GM in IV NORMAL SALINE 50ML 50 ML IV SCH ×6 (05:59→23:32)
--- NOTE | 2018-11-23 06:46 | NUR ---
Notified patient ws cyndy during the night. 40's to 50's and occassionally 38 and 39. No new orders received
[2018-11-23] MEDS ORDERED: IOHEXOL 240 MG/ML 50ML VIAL. PO ONE (07:30)
[2018-11-23] MEDS ORDERED: IOHEXOL 300 MG/ML 100ML VIAL. IV ONE (07:30)
[2018-11-23] MEDS ORDERED: CONTRAST GIVEN. MC PRN (07:30)
[2018-11-23] MEDS: PANTOPRAZOLE IV PUSH 40 MG VIAL. IVP SCH (08:38)
--- NOTE | 2018-11-23 09:45 | PDOC ---
NANCY JONES SENIOR VISUAL DESIGNER 11/23/18 0945: SURGICAL PROGRESS NOTE Subjective overall pain improved, not completely gone--intermittent sharp with achy pains no emesis + flatus, no stool Vital Signs Vital Signs Date Time Temp Pulse Resp B/P (MAP) Pulse Ox O2 Delivery O2 Flow Rate FiO2 11/23/18 07:00 98.7 53 20 158/74 (102) 95 Room Air 98.7 I&O Intake and Output 11/23/18 07:00 Intake Total 2080 ml Balance 2080 ml Intake Oral 2080 ml # Voids 4 General: Alert, Oriented X3, Cooperative, No acute distress Abdomen: Soft, No tenderness Labs Laboratory Tests Test 11/22/18 06:40 11/23/18 03:20 White Blood Count 8.7 x10^3/uL (4.0-11.0) 8.8 x10^3/uL (4.0-11.0) Red Blood Count 4.75 x10^6/uL (4.30-5.70) 4.56 x10^6/uL (4.30-5.70) Hemoglobin 15.3 g/dL (13.0-17.5) 14.6 g/dL (13.0-17.5) Hematocrit 46.3 % (39.0-53.0) 44.1 % (39.0-53.0) Mean Corpuscular Volume 98 fL (79-100) 97 fL (79-100) Mean Corpuscular Hemoglobin 32 pg (25-35) 32 pg (25-35) Mean Corpuscular Hemoglobin Concent 33 g/dL (31-37) 33 g/dL (31-37) Red Cell Distribution Width 13.6 % (11.5-14.5) 13.4 % (11.5-14.5) Platelet Count 192 x10^3/uL (140-400) 188 x10^3/uL (140-400) Neutrophils (%) (Auto) 70 % (31-73) 65 % (31-73) Lymphocytes (%) (Auto) 16 % (24-48) 20 % (24-48) Monocytes (%) (Auto) 10 % (0-9) 12 % (0-9) Eosinophils (%) (Auto) 3 % (0-3) 3 % (0-3) Basophils (%) (Auto) 1 % (0-3) 1 % (0-3) Neutrophils # (Auto) 6.1 x10^3uL (1.8-7.7) 5.7 x10^3uL (1.8-7.7) Lymphocytes # (Auto) 1.4 x10^3/uL (1.0-4.8) 1.8 x10^3/uL (1.0-4.8) Monocytes # (Auto) 0.9 x10^3/uL (0.0-1.1) 1.0 x10^3/uL (0.0-1.1) Eosinophils # (Auto) 0.2 x10^3/uL (0.0-0.7) 0.3 x10^3/uL (0.0-0.7) Basophils # (Auto) 0.0 x10^3/uL (0.0-0.2) 0.1 x10^3/uL (0.0-0.2) Nasal Screen MRSA (PCR) Negative (Negative) Sodium Level 140 mmol/L (136-145) 142 mmol/L (136-145) Potassium Level 4.1 mmol/L (3.5-5.1) 3.8 mmol/L (3.5-5.1) Chloride Level 103 mmol/L (98-107) 104 mmol/L (98-107) Carbon Dioxide Level 25 mmol/L (21-32) 26 mmol/L (21-32) Anion Gap 12 (6-14) 12 (6-14) Blood Urea Nitrogen 19 mg/dL (8-26) 15 mg/dL (8-26) Creatinine 1.1 mg/dL (0.7-1.3) 1.2 mg/dL (0.7-1.3) Estimated GFR (Cockcroft-Gault) 67.4 61.0 BUN/Creatinine Ratio 17 (6-20) 13 (6-20) Glucose Level 91 mg/dL (70-99) 86 mg/dL (70-99) Calcium Level 9.1 mg/dL (8.5-10.1) 8.9 mg/dL (8.5-10.1) Total Bilirubin 0.5 mg/dL (0.2-1.0) 0.5 mg/dL (0.2-1.0) Aspartate Amino Transf (AST/SGOT) 20 U/L (15-37) 21 U/L (15-37) Alanine Aminotransferase (ALT/SGPT) 24 U/L (16-63) 25 U/L (16-63) Alkaline Phosphatase 55 U/L (46-116) 54 U/L (46-116) Total Protein 7.3 g/dL (6.4-8.2) 6.8 g/dL (6.4-8.2) Albumin 3.1 g/dL (3.4-5.0) 2.9 g/dL (3.4-5.0) Albumin/Globulin Ratio 0.7 (1.0-1.7) 0.7 (1.0-1.7) Laboratory Tests Test 11/23/18 03:20 White Blood Count 8.8 x10^3/uL (4.0-11.0) Red Blood Count 4.56 x10^6/uL (4.30-5.70) Hemoglobin 14.6 g/dL (13.0-17.5) Hematocrit 44.1 % (39.0-53.0) Mean Corpuscular Volume 97 fL (79-100) Mean Corpuscular Hemoglobin 32 pg (25-35) Mean Corpuscular Hemoglobin Concent 33 g/dL (31-37) Red Cell Distribution Width 13.4 % (11.5-14.5) Platelet Count 188 x10^3/uL (140-400) Neutrophils (%) (Auto) 65 % (31-73) Lymphocytes (%) (Auto) 20 % (24-48) Monocytes (%) (Auto) 12 % (0-9) Eosinophils (%) (Auto) 3 % (0-3) Basophils (%) (Auto) 1 % (0-3) Neutrophils # (Auto) 5.7 x10^3uL (1.8-7.7) Lymphocytes # (Auto) 1.8 x10^3/uL (1.0-4.8) Monocytes # (Auto) 1.0 x10^3/uL (0.0-1.1) Eosinophils # (Auto) 0.3 x10^3/uL (0.0-0.7) Basophils # (Auto) 0.1 x10^3/uL (0.0-0.2) Sodium Level 142 mmol/L (136-145) Potassium Level 3.8 mmol/L (3.5-5.1) Chloride Level 104 mmol/L (98-107) Carbon Dioxide Level 26 mmol/L (21-32) Anion Gap 12 (6-14) Blood Urea Nitrogen 15 mg/dL (8-26) Creatinine 1.2 mg/dL (0.7-1.3) Estimated GFR (Cockcroft-Gault) 61.0 BUN/Creatinine Ratio 13 (6-20) Glucose Level 86 mg/dL (70-99) Calcium Level 8.9 mg/dL (8.5-10.1) Total Bilirubin 0.5 mg/dL (0.2-1.0) Aspartate Amino Transf (AST/SGOT) 21 U/L (15-37) Alanine Aminotransferase (ALT/SGPT) 25 U/L (16-63) Alkaline Phosphatase 54 U/L (46-116) Total Protein 6.8 g/dL (6.4-8.2) Albumin 2.9 g/dL (3.4-5.0) Albumin/Globulin Ratio 0.7 (1.0-1.7) Problem List Problems Medical Problems: (1) Diverticulitis Status: Acute (2) Perforation bowel Status: Acute Assessment/Plan CT planned today RICCARDO WHINTEY MD 11/23/18 1624: SURGICAL PROGRESS NOTE Assessment/Plan CT shows slight increase in pericolonic process pt appears improved clinically continue present care NANCY JONES APRN Nov 23, 2018 09:45 RICCARDO WHITNEY MD Nov 23, 2018 16:24
--- NOTE | 2018-11-23 10:31 | CARD ---
MR#: [id number] Date of Study: 11/23/2018 Ordering Physician: Melissa SAINZ, Referring Physician: Melissa SAINZ Tech: Ellyn Stanford RDCS APPROVED REPORT EXAM: Two-dimensional and M-mode echocardiogram with Doppler and color Doppler. Other Information Quality : Fair INDICATION Cardiac Disease: CAD 2D DIMENSIONS RVDd2.9 (2.9-3.5cm)Left Atrium(2D)4.7 (1.6-4.0cm) IVSd1.5 (0.7-1.1cm)Aortic Root(2D)3.1 (2.0-3.7cm) LVDd5.8 (3.9-5.9cm)LVOT Diameter2.2 (1.8-2.4cm) PWd1.6 (0.7-1.1cm)LVDs4.2 (2.5-4.0cm) FS (%) 28.2 %SV91.2 ml LVEF(%)55.0 (>50%) Aortic Valve AoV Peak Hero.165.7cm/sAoV VTI26.2cm AO Peak GR.11.0mmHgLVOT Peak Hero.149.1cm/s AO Mean GR.5mmHgAVA (VMAX)3.46cm2 JOSÉ (VTI)4.50cm2 Mitral Valve MV E Cpxpdvbm24.2cm/sMV DECEL [id number] MV A Udhiwgfd50.4cm/sE/A Ratio1.1 Tricuspid Valve TR P. [id number]/sRAP [id number] TR Peak Gr.75zvDzJKJA68fwWp Pulmonary Vein S1 Ngcitssl24.5cm/sD2 Kzejtgno83.1cm/s LEFT VENTRICLE The left ventricle is normal size. There is mild to moderate concentric left ventricular hypertrophy. The left ventricular systolic function is normal. The Ejection Fraction is 55-60%. There is normal L V segmental wall motion. RIGHT VENTRICLE The right ventricle is normal size. The right ventricular systolic function is normal. ATRIA The left atrium is mildly dilated. The right atrium size is normal. The interatrial septum is intact with no evidence for an atrial septal defect or patent foramen ovale as noted on 2-D or Doppler imagi ng. AORTIC VALVE The aortic valve is calcified but opens well. Doppler and Color Flow revealed no significant aortic r egurgitation. There is no significant aortic valvular stenosis. MITRAL VALVE The mitral valve is calcified but opens well. There is no evidence of mitral valve prolapse. There is no mitral valve stenosis. Doppler and Color-flow revealed trace mitral regurgitation. TRICUSPID VALVE The tricuspid valve is normal in structure and function. Doppler and Color Flow revealed trace tricus pid regurgitation. There is mild pulmonary hypertension. The PA pressure was estimated at 34 mmHg. Th ere is no tricuspid valve stenosis. PULMONIC VALVE The pulmonic valve is not well visualized. Doppler and Color Flow revealed trace pulmonic valvular re gurgitation. There is no pulmonic valvular stenosis. GREAT VESSELS The aortic root is normal in size. The ascending aorta is normal in size. The IVC is normal in size a nd collapses >50% with inspiration. PERICARDIAL EFFUSION There is no evidence of significant pericardial effusion. Critical Notification Critical Value: No <Conclusion> The left ventricular systolic function is normal. The Ejection Fraction is 55-60%. There is normal LV segmental wall motion. Trace mitral regurgitation. Trace tricuspid regurgitation. There is mild pulmonary hypertension. The PA pressure was estimated at 34 mmHg. There is no evidence of significant pericardial effusion. Signed by : Andrea Ojeda, Electronically Approved : 11/23/2018 10:30:38
--- NOTE | 2018-11-23 10:43 | EKG ---
[facility] [address] [place] [address] Test Date: 2018-11-23 Test Time: 08:41:16 Pat Name: AAMIR ESPARZA Department: Room: [facility] Gender: [employer]: : 1955 Requested By: AMAN KRAUSE Order Number: [id number] Reading MD: Musa Link MD Measurements Intervals Cam[place] Rate: P: HI: QRS: QRSD: T: QT: QTc: Interpretive Statements SR 1ST DEGREE AVB MISSING LEADS Electronically Signed On 11-23-2018 12:47:38 CDT by Musa Link MD
--- NOTE | 2018-11-23 11:06 | PDOC ---
Infectious Disease Note Subjective: Subjective Pt says feels better toleratating meals well Denies F/C/S/N/V had one regular BM no blood in stool Vital Signs: Vital Signs Vital Signs Date Time Temp Pulse Resp B/P (MAP) Pulse Ox O2 Delivery O2 Flow Rate FiO2 11/23/18 10:46 98.5 54 20 175/82 (113) 96 Room Air 98.5 Physical Exam: PHYSICAL EXAM GENERAL: Sitting in hte chair, alert, working on laptop computer HEENT: Pupils equally round reactive. Normal conjunctivae. Oral cavity/ pharynx pink and moist. Dentures in place. NECK: Supple. LUNGS: Clear to auscultation. HEART: S1 and S2. ABDOMEN: Obese, soft, mildly tender with bowel sounds present. EXTREMITIES: No gross edema or cyanosis. SKIN: Warm without rash. NEUROLOGIC: Alert and oriented x 3. Medications: Inpatient Meds: Current Medications Medications (Trade) Dose Ordered Sig/Marisela Start Time Stop Time Status Last Admin Dose Admin Amino Acids/ Glycerin/ Electrolytes 1,000 ml @ 80 mls/hr [id number] 11/21/18 11:15 11/23/18 05:59 80 MLS/HR Fentanyl Citrate (Fentanyl 2ml Vial) 25 mcg PRN Q3HRS PRN 11/21/18 03:30 Info (CONTRAST GIVEN -- Rx MONITORING) 1 each PRN DAILY PRN 11/23/18 07:30 11/25/18 07:29 Iohexol (Omnipaque 240 Mg/ml) 50 ml 1X ONCE 11/23/18 07:30 11/23/18 07:31 DC 11/23/18 07:30 50 ML Iohexol (Omnipaque 300 Mg/ml) 75 ml 1X ONCE 11/23/18 07:30 11/23/18 07:31 DC Lactobacillus Rhamnosus (Culturelle) 1 cap BID 11/23/18 21:00 Pantoprazole Sodium (PROTONIX VIAL for IV PUSH) 40 mg DAILYAC 11/22/18 07:30 11/23/18 08:38 40 MG Piperacillin Sod/ Tazobactam Sod (Zosyn Per Pharmacy) 1 each PRN DAILY PRN 11/20/18 15:15 UNV Piperacillin Sod/ Tazobactam Sod 3.375 gm/Sodium Chloride 50 ml @ 100 mls/hr Q6HRS 11/20/18 18:30 11/23/18 05:59 100 MLS/HR Sodium Chloride 1,000 ml @ 120 mls/hr [id number] 11/20/18 15:08 11/20/18 21:07 DC 11/20/18 15:41 120 MLS/HR Labs: Lab Laboratory Tests Test 11/23/18 03:20 White Blood Count 8.8 x10^3/uL (4.0-11.0) Red Blood Count 4.56 x10^6/uL (4.30-5.70) Hemoglobin 14.6 g/dL (13.0-17.5) Hematocrit 44.1 % (39.0-53.0) Mean Corpuscular Volume 97 fL (79-100) Mean Corpuscular Hemoglobin 32 pg (25-35) Mean Corpuscular Hemoglobin Concent 33 g/dL (31-37) Red Cell Distribution Width 13.4 % (11.5-14.5) Platelet Count 188 x10^3/uL (140-400) Neutrophils (%) (Auto) 65 % (31-73) Lymphocytes (%) (Auto) 20 % (24-48) Monocytes (%) (Auto) 12 % (0-9) Eosinophils (%) (Auto) 3 % (0-3) Basophils (%) (Auto) 1 % (0-3) Neutrophils # (Auto) 5.7 x10^3uL (1.8-7.7) Lymphocytes # (Auto) 1.8 x10^3/uL (1.0-4.8) Monocytes # (Auto) 1.0 x10^3/uL (0.0-1.1) Eosinophils # (Auto) 0.3 x10^3/uL (0.0-0.7) Basophils # (Auto) 0.1 x10^3/uL (0.0-0.2) Sodium Level 142 mmol/L (136-145) Potassium Level 3.8 mmol/L (3.5-5.1) Chloride Level 104 mmol/L (98-107) Carbon Dioxide Level 26 mmol/L (21-32) Anion Gap 12 (6-14) Blood Urea Nitrogen 15 mg/dL (8-26) Creatinine 1.2 mg/dL (0.7-1.3) Estimated GFR (Cockcroft-Gault) 61.0 BUN/Creatinine Ratio 13 (6-20) Glucose Level 86 mg/dL (70-99) Calcium Level 8.9 mg/dL (8.5-10.1) Total Bilirubin 0.5 mg/dL (0.2-1.0) Aspartate Amino Transf (AST/SGOT) 21 U/L (15-37) Alanine Aminotransferase (ALT/SGPT) 25 U/L (16-63) Alkaline Phosphatase 54 U/L (46-116) Total Protein 6.8 g/dL (6.4-8.2) Albumin 2.9 g/dL (3.4-5.0) Albumin/Globulin Ratio 0.7 (1.0-1.7) Objective: Assessment: Acute diverticulitis with perforation and a 1.5 cm abscess sigmoid colon Leukocytosis, better h/o MRSA CKD CAD Plan: Plan of Care Continue Zosyn BC pending Monitor WBC/temp Gen surgery following Repeat CT today ROBERT MAJOR MD Nov 23, 2018 11:06
--- NOTE | 2018-11-23 12:30 | RAD ---
CT of the abdomen and pelvis with contrast, 11/23/2018: HISTORY: Follow-up diverticular abscess Multidetector CT imaging was performed following oral and IV administration of contrast. Comparison is made to a study from 11/20/2018. The liver is unremarkable. No gallbladder abnormality is seen. The pancreas shows no abnormality. The spleen is unremarkable. There is minimal bilateral perinephric edema. The kidneys show no evidence of mass or hydronephrosis. There is mild unchanged bilateral adrenal nodularity. There is moderate aortoiliac calcific plaquing no abdominal or pelvic adenopathy is seen. The prostate gland is mildly enlarged. Colonic diverticula are present. There is streaky inflammation in the paracolic fat related to the proximal sigmoid colon which has worsened slightly since the previous study. There are small extraluminal collections of gas along the anterior aspect of the proximal sigmoid colon. The largest of these has increased slightly in size since the previous study now measuring 2.3 cm in width. It forms a small air-fluid level, although the amount of drainable fluid appears to be minimal. There is underlying colonic mural thickening which is likely inflammatory in nature, although underlying neoplasm cannot be excluded. There is no evidence of bowel obstruction. IMPRESSION: Slight interval worsening of the paracolic inflammatory process related to the proximal sigmoid colon, again compatible with acute diverticulitis. PQRS Compliance Statement: One or more of the following individualized dose reduction techniques were utilized for this examination: 1. Automated exposure control 2. Adjustment of the mA and/or kV according to patient size 3. Use of iterative reconstruction technique Electronically signed by: Shahram Griggs MD (11/23/2018 12:28 PM) [facility]
--- NOTE | 2018-11-23 12:57 | PDOC ---
CARDIOLOGY PROGRESS NOTE SUBJECTIVE: Feels better. No chest pain/dyspnea. OBJECTIVE: Vital SIgns: Vital Signs Date Time Temp Pulse Resp B/P (MAP) Pulse Ox O2 Delivery O2 Flow Rate FiO2 11/23/18 11:30 56 155/72 (99) 11/23/18 10:46 98.5 20 96 Room Air 98.5 I & O Intake and Output 11/23/18 07:00 Intake Total 2080 ml Balance 2080 ml Intake Oral 2080 ml # Voids 4 Objective: Normal heart tones. Soft abd. No edema. CURRENT MEDICATIONS: Current Medications Medications (Trade) Dose Ordered Sig/Marisela Start Time Stop Time Status Last Admin Dose Admin Amino Acids/ Glycerin/ Electrolytes 1,000 ml @ 80 mls/hr [id number] 11/21/18 11:15 11/23/18 05:59 80 MLS/HR Fentanyl Citrate (Fentanyl 2ml Vial) 25 mcg PRN Q3HRS PRN 11/21/18 03:30 Info (CONTRAST GIVEN -- Rx MONITORING) 1 each PRN DAILY PRN 11/23/18 07:30 11/25/18 07:29 Iohexol (Omnipaque 240 Mg/ml) 50 ml 1X ONCE 11/23/18 07:30 11/23/18 07:31 DC 11/23/18 07:30 50 ML Iohexol (Omnipaque 300 Mg/ml) 75 ml 1X ONCE 11/23/18 07:30 11/23/18 07:31 DC Lactobacillus Rhamnosus (Culturelle) 1 cap BID 11/23/18 21:00 Pantoprazole Sodium (PROTONIX VIAL for IV PUSH) 40 mg DAILYAC 11/22/18 07:30 11/23/18 08:38 40 MG Piperacillin Sod/ Tazobactam Sod (Zosyn Per Pharmacy) 1 each PRN DAILY PRN 11/20/18 15:15 UNV Piperacillin Sod/ Tazobactam Sod 3.375 gm/Sodium Chloride 50 ml @ 100 mls/hr Q6HRS 11/20/18 18:30 11/23/18 12:06 100 MLS/HR Sodium Chloride 1,000 ml @ 120 mls/hr Q8H20M 11/20/18 15:08 11/20/18 21:07 DC 11/20/18 15:41 120 MLS/HR DIAGNOSTIC TESTING: Echo wnl. ASSESSMENT: 1. CAD s/p PCI remotely - 2. HTN 3. Possible diverticular rupture. PLAN: 1. Will review PCP office notes and start appropriate BP regimen. Tele reviewed , asymptomatic sinus cyndy. May need to go back to old dose of coreg( apparently recently increased). May not be able to tolerate coreg on discharge, again will review outpt regimen and decide BP regimen. Supportive care. Will f/u in the office in 3 months. BROOKS HEATH MD Nov 23, 2018 12:57
[2018-11-23] MEDS: LISINOPRIL 20 MG TABLET PO SCH ×2 (14:56→20:48)
[2018-11-23] MEDS ORDERED: amLODIPine BESYLATE 5 MG TABLET PO ONE (15:00)
--- NOTE | 2018-11-23 15:17 | NUR ---
SW following pt for anticipated dc needs. Chart reviewed and discussed with RN. Pt lives at home with family. ID following pt. No SW needs noted at this time. Will continue to evaluate needs.
--- NOTE | 2018-11-23 17:34 | PDOC ---
PROGRESS NOTES Subjective c/o suprapubic and LLQ pain, urine cx negative, blood cx negative, imaging shows some LLQ air, no drainable fluid collection though. His HR dropped overnight, meds changed Objective Afebrile General: comfortable sitting still, some discomfort with certain movements, lumbar back sore Heart: RRR Lungs: still with smoker's cough Abd: LLQ tenderness Ext: no c/C/E Vital Signs Vital Signs Date Time Temp Pulse Resp B/P (MAP) Pulse Ox O2 Delivery O2 Flow Rate FiO2 11/23/18 15:00 98.2 64 20 154/78 (103) 95 Room Air 98.2 I & O Intake and Output 11/23/18 07:00 Intake Total 2080 ml Balance 2080 ml Intake Oral 2080 ml # Voids 4 Assessment and Plan acute sigmoid diverticulitis with perforation - surgical consult, ID consult - clinically improving with conservative treatment, CT not showing resolution but WBC normal and afebrile, cultures negative, continue Procalamine and clear liquid diet CAD with hx of LAD stent - no recent chest pain - cardiology consulted bradycardia overnight - avoid resuming beta apu tobacco use disorder COPD CKD - back to baseline hx of cancerous bladder polyp - resected, no recent f/u BPH - change tamsulosin to Rapaflo lumbar DJD Roderick SAINZ MD Nov 23, 2018 17:33
[2018-11-23] MEDS: LACTOBACILLUS RHAMNOSUS GG 1 CAPSULE. PO SCH (20:48)
[2018-11-24 03:00] VITALS: BP 112/60
[2018-11-24] MEDS: PIPERACILLIN/TAZOBACTAM 3.375 GM in IV NORMAL SALINE 50ML 50 ML IV SCH ×3 (06:41→17:45)
[2018-11-24] MEDS: fentaNYL PF VIAL 100 MCG/2 ML VIAL IV PRN ×2 (06:42→21:14)
[2018-11-24 07:00] VITALS: BP 122/76
--- NOTE | 2018-11-24 07:45 | EKG ---
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
[2018-11-24] MEDS: PANTOPRAZOLE IV PUSH 40 MG VIAL. IVP SCH (08:37)
[2018-11-24] MEDS: amLODIPine BESYLATE 5 MG TABLET PO SCH (08:38)
[2018-11-24] MEDS: LISINOPRIL 20 MG TABLET PO SCH ×2 (08:38→21:08)
[2018-11-24] MEDS: LACTOBACILLUS RHAMNOSUS GG 1 CAPSULE. PO SCH ×2 (08:38→21:07)
--- NOTE | 2018-11-24 09:42 | PDOC ---
NANCY JONES [employer] 11/24/18 0942: SURGICAL PROGRESS NOTE Subjective still some intermittent sharp pain ongoing dull ache some burning low pelvis with urination Vital Signs Vital Signs Date Time Temp Pulse Resp B/P (MAP) Pulse Ox O2 Delivery O2 Flow Rate FiO2 11/24/18 08:38 62 122/76 11/24/18 07:12 93 Room Air 11/24/18 07:00 98.9 20 98.9 I&O Intake and Output 11/24/18 06:59 Intake Total 2100 ml Output Total 500 ml Balance 1600 ml Intake Oral 2100 ml Output Urine Total 500 ml # Voids 4 # Bowel Movements 2 PATIENT HAS A MARIN: No General: Alert, Oriented X3, Cooperative, No acute distress Abdomen: Soft, No tenderness Labs Laboratory Tests Test 11/23/18 03:20 White Blood Count 8.8 x10^3/uL (4.0-11.0) Red Blood Count 4.56 x10^6/uL (4.30-5.70) Hemoglobin 14.6 g/dL (13.0-17.5) Hematocrit 44.1 % (39.0-53.0) Mean Corpuscular Volume 97 fL (79-100) Mean Corpuscular Hemoglobin 32 pg (25-35) Mean Corpuscular Hemoglobin Concent 33 g/dL (31-37) Red Cell Distribution Width 13.4 % (11.5-14.5) Platelet Count 188 x10^3/uL (140-400) Neutrophils (%) (Auto) 65 % (31-73) Lymphocytes (%) (Auto) 20 % (24-48) Monocytes (%) (Auto) 12 % (0-9) Eosinophils (%) (Auto) 3 % (0-3) Basophils (%) (Auto) 1 % (0-3) Neutrophils # (Auto) 5.7 x10^3uL (1.8-7.7) Lymphocytes # (Auto) 1.8 x10^3/uL (1.0-4.8) Monocytes # (Auto) 1.0 x10^3/uL (0.0-1.1) Eosinophils # (Auto) 0.3 x10^3/uL (0.0-0.7) Basophils # (Auto) 0.1 x10^3/uL (0.0-0.2) Sodium Level 142 mmol/L (136-145) Potassium Level 3.8 mmol/L (3.5-5.1) Chloride Level 104 mmol/L (98-107) Carbon Dioxide Level 26 mmol/L (21-32) Anion Gap 12 (6-14) Blood Urea Nitrogen 15 mg/dL (8-26) Creatinine 1.2 mg/dL (0.7-1.3) Estimated GFR (Cockcroft-Gault) 61.0 BUN/Creatinine Ratio 13 (6-20) Glucose Level 86 mg/dL (70-99) Calcium Level 8.9 mg/dL (8.5-10.1) Total Bilirubin 0.5 mg/dL (0.2-1.0) Aspartate Amino Transf (AST/SGOT) 21 U/L (15-37) Alanine Aminotransferase (ALT/SGPT) 25 U/L (16-63) Alkaline Phosphatase 54 U/L (46-116) Total Protein 6.8 g/dL (6.4-8.2) Albumin 2.9 g/dL (3.4-5.0) Albumin/Globulin Ratio 0.7 (1.0-1.7) Problem List Problems Medical Problems: (1) Diverticulitis Status: Acute (2) Perforation bowel Status: Acute Assessment/Plan diverticulitis supportive measures, abx RICCARDO WHITNEY MD 11/24/18 1332: SURGICAL PROGRESS NOTE Assessment/Plan pt seen up to bedside chair his dad is in the room still with occasional pain passing some mucous per rectum continue abx, fluids asked Dr Pool for input NANCY JONES APRN Nov 24, 2018 09:42 RICCARDO WHITNEY MD Nov 24, 2018 13:32
[2018-11-24 10:41] VITALS: BP 121/63
--- NOTE | 2018-11-24 12:05 | PDOC ---
Infectious Disease Note Subjective: Subjective Pt says feels better some abdominal pain but improving toleratating liquid well Denies F/C/S/N/V had one regular BM no blood in stool eager to be dc home today Per RN had an episode of bradycardia ROS: ROS Negative except for above. Vital Signs: Vital Signs Vital Signs Date Time Temp Pulse Resp B/P (MAP) Pulse Ox O2 Delivery O2 Flow Rate FiO2 11/24/18 10:41 98.2 60 20 121/63 (82) 95 Room Air 98.2 Physical Exam: PHYSICAL EXAM GENERAL: Sitting in hte chair, alert, working on laptop computer HEENT: Pupils equally round reactive. Normal conjunctivae. Oral cavity/ pharynx pink and moist. Dentures in place. NECK: Supple. LUNGS: Clear to auscultation. HEART: S1 and S2. ABDOMEN: Obese, soft, mildly tender with bowel sounds present. EXTREMITIES: No gross edema or cyanosis. SKIN: Warm without rash. NEUROLOGIC: Alert and oriented x 3. Medications: Inpatient Meds: Current Medications Medications (Trade) Dose Ordered Sig/Marisela Start Time Stop Time Status Last Admin Dose Admin Amino Acids/ Glycerin/ Electrolytes 1,000 ml @ 80 mls/hr [id number] 11/21/18 11:15 11/23/18 23:32 80 MLS/HR Amlodipine Besylate (Norvasc) 5 mg DAILY 11/24/18 09:00 11/24/18 08:38 5 MG Fentanyl Citrate (Fentanyl 2ml Vial) 25 mcg PRN Q3HRS PRN 11/21/18 03:30 Info (CONTRAST GIVEN -- Rx MONITORING) 1 each PRN DAILY PRN 11/23/18 07:30 11/25/18 07:29 Iohexol (Omnipaque 240 Mg/ml) 50 ml 1X ONCE 11/23/18 07:30 11/23/18 07:31 DC 11/23/18 07:30 50 ML Iohexol (Omnipaque 300 Mg/ml) 75 ml 1X ONCE 11/23/18 07:30 11/23/18 07:31 DC Lactobacillus Rhamnosus (Culturelle) 1 cap BID 11/23/18 21:00 11/24/18 08:38 1 CAP Lisinopril (Prinivil) 20 mg BID 11/23/18 15:00 11/24/18 08:38 20 MG Pantoprazole Sodium (PROTONIX VIAL for IV PUSH) 40 mg DAILYAC 11/22/18 07:30 11/24/18 08:37 40 MG Piperacillin Sod/ Tazobactam Sod (Zosyn Per Pharmacy) 1 each PRN DAILY PRN 11/20/18 15:15 UNV Piperacillin Sod/ Tazobactam Sod 3.375 gm/Sodium Chloride 50 ml @ 100 mls/hr Q6HRS 11/20/18 18:30 11/24/18 11:12 100 MLS/HR Sodium Chloride 1,000 ml @ 120 mls/hr Q8H20M 11/20/18 15:08 11/20/18 21:07 DC 11/20/18 15:41 120 MLS/HR Objective: Assessment: Acute diverticulitis with perforation and a 1.5 cm abscess sigmoid colon Repeat CT abdo and pelvis 11/23 Slight interval worsening of the paracolic inflammatory process related to the proximal sigmoid colon, again compatible with acute diverticulitis. Leukocytosis, better h/o MRSA CKD CAD Bradycardia this am ,now resolved Plan: Plan of Care Continue Zosyn for now can transition to po augmentin when ready for dc home BC neg so far Monitor WBC/temp Gen surgery following D/W ROBERT BURCH MD Nov 24, 2018 12:05
--- NOTE | 2018-11-24 12:25 | PDOC ---
PROGRESS NOTES Subjective He was bradycardic to 38 at 5:38 this am but unaware of any symptoms, no apnea symptoms. He is tolerating clear liquids, stilll on IV antibiotics but afebrile. He is hungry and wants to eat, still on ProcalAmine Objective Afebrile General: NAD Heart: RRR, cyndy earlier Lungs: CTA but diminished breath sounds throughout Abd: soft, LLQ pain persists Ext: no C/C/E Vital Signs Vital Signs Date Time Temp Pulse Resp B/P (MAP) Pulse Ox O2 Delivery O2 Flow Rate FiO2 11/24/18 10:41 98.2 60 20 121/63 (82) 95 Room Air 98.2 I & O Intake and Output 11/24/18 07:00 Intake Total 2100 ml Output Total 500 ml Balance 1600 ml Intake Oral 2100 ml Output Urine Total 500 ml # Voids 4 # Bowel Movements 2 Assessment and Plan acute sigmoid diverticulitis with perforation - surgical consult, ID consult - clinically improving with IV antibiotics, CT not showing resolution but WBC normal and afebrile, cultures negative, advance diet when ok with surgery CAD with hx of LAD stent - no recent chest pain - cardiology consulted bradycardia with HR of 38 this am - continue to monitor, cardiology following, was on carvedilol at home but not on it this hospitalization tobacco use disorder COPD CKD - back to baseline hx of cancerous bladder polyp - resected, no recent f/u BPH - cont tamsulosin lumbar DJD Roderick SAINZ MD Nov 24, 2018 12:25
--- NOTE | 2018-11-24 12:50 | NUR ---
Spoke with Dr. Fred Alvares, who advised that antibiotics would remain IV until discharge (and advanced diet), at which time the antibiotics would then switch to oral.
[2018-11-24 14:43] VITALS: BP 146/69
[2018-11-24] MEDS: AMINO AC 3%/ELECTROLYTE/GLYCER 1,000 ML IV SCH (14:47)
--- NOTE | 2018-11-24 15:25 | PDOC ---
CARDIO Progress Notes Date and Time Date of Service 11/24/2018 Time of Evaluation 1450 Subjective Subjective: No Chest Pain, No shortness of breath, No Palpitations Vitals Vitals Vital Signs Date Time Temp Pulse Resp B/P (MAP) Pulse Ox O2 Delivery O2 Flow Rate FiO2 11/24/18 14:43 98.2 59 20 146/69 (94) 99 Room Air 98.2 Weight Weight [ ] Input and Output Intake and Output Intake and Output 11/24/18 07:00 Intake Total 2100 ml Output Total 500 ml Balance 1600 ml Intake Oral 2100 ml Output Urine Total 500 ml # Voids 4 # Bowel Movements 2 Microbiology Micro Microbiology 11/21/18 Blood Culture - Preliminary, Resulted NO GROWTH AFTER 3 DAYS 11/20/18 Urine Culture - Final, Complete 11/20/18 Urine Culture Result 1 (HIEU) - Final, Complete Physical Exam HEENT: Neck Supple W Full Motion Chest: Symmetric LUNGS: Clear to Auscultation Heart: S1S2, RRR (SR) Abdomen: Soft N/T Extremities: No Edema, No Calf Tenderness Neurology: alert, oriented, follow commands Assessment Assessment 1. CAD s/p PCI remotely; clinically stable. EF and WM nml 2. HTN: controlled 3. Abdominal pain/Possible diverticular rupture: No surgical plans so far with conservative treatment 4. Asymptomatic SB: mainly due to high dose coreg, lowest rate in the 50s since coreg stopped 5. Tobaccoism with suspected COPD Recommendations 1. ECASA 81 mg ASA if ok with surgery. Continue home statin 2. BP well controlled. Continue lisinopril and norvasc. No coreg 3. HBPM bid for a week when DCd and discussed when to call if BP uncontrolled. 4. Smoking cessation 5. Follow up in office with Dr. Link on January 08 11 AM EMIL CARPENTER APRN Nov 24, 2018 15:25
[2018-11-24 19:00] VITALS: BP 126/62
[2018-11-24] MEDS ORDERED: ATORVASTATIN CALCIUM 10 MG TABLET. PO SCH (21:00)
[2018-11-24 23:00] VITALS: BP 107/52
[2018-11-25] MEDS: PIPERACILLIN/TAZOBACTAM 3.375 GM in IV NORMAL SALINE 50ML 50 ML IV SCH ×3 (00:30→12:27)
[2018-11-25 03:00] VITALS: BP 113/56
[2018-11-25] MEDS: AMINO AC 3%/ELECTROLYTE/GLYCER 1,000 ML IV SCH ×2 (04:55→15:15)
[2018-11-25 07:00] VITALS: BP 110/73
[2018-11-25] MEDS: LACTOBACILLUS RHAMNOSUS GG 1 CAPSULE. PO SCH (09:32)
[2018-11-25] MEDS: amLODIPine BESYLATE 5 MG TABLET PO SCH (09:32)
[2018-11-25] MEDS: PANTOPRAZOLE IV PUSH 40 MG VIAL. IVP SCH (09:32)
[2018-11-25] MEDS: LISINOPRIL 20 MG TABLET PO SCH (09:32)
--- NOTE | 2018-11-25 10:23 | PDOC ---
Infectious Disease Note Subjective: Subjective Pt says feels better some abdominal pain but improving toleratating GI soft diet well Denies F/C/S/N/V had BM this am no blood in stool eager to be dc home today ROS: ROS Negative except for above. Vital Signs: Vital Signs Vital Signs Date Time Temp Pulse Resp B/P (MAP) Pulse Ox O2 Delivery O2 Flow Rate FiO2 11/25/18 09:32 59 110/73 11/25/18 07:00 98.0 18 94 Room Air 98.0 Physical Exam: PHYSICAL EXAM GENERAL: Sitting in hte chair, alert, working on laptop computer HEENT: Pupils equally round reactive. Normal conjunctivae. Oral cavity/ pharynx pink and moist. Dentures in place. NECK: Supple. LUNGS: Clear to auscultation. HEART: S1 and S2. ABDOMEN: Obese, soft, mildly tender with bowel sounds present. EXTREMITIES: No gross edema or cyanosis. SKIN: Warm without rash. NEUROLOGIC: Alert and oriented x 3. Medications: Inpatient Meds: Current Medications Medications (Trade) Dose Ordered Sig/Marisela Start Time Stop Time Status Last Admin Dose Admin Amino Acids/ Glycerin/ Electrolytes 1,000 ml @ 80 mls/hr [id number] 11/21/18 11:15 11/25/18 04:55 80 MLS/HR Amlodipine Besylate (Norvasc) 5 mg DAILY 11/24/18 09:00 11/25/18 09:32 5 MG Atorvastatin Calcium (Lipitor) 10 mg QHS 11/24/18 21:00 11/24/18 21:07 10 MG Fentanyl Citrate (Fentanyl 2ml Vial) 25 mcg PRN Q3HRS PRN 11/21/18 03:30 Info (CONTRAST GIVEN -- Rx MONITORING) 1 each PRN DAILY PRN 11/23/18 07:30 11/25/18 07:29 DC Iohexol (Omnipaque 240 Mg/ml) 50 ml 1X ONCE 11/23/18 07:30 11/23/18 07:31 DC 11/23/18 07:30 50 ML Iohexol (Omnipaque 300 Mg/ml) 75 ml 1X ONCE 11/23/18 07:30 11/23/18 07:31 DC Lactobacillus Rhamnosus (Culturelle) 1 cap BID 11/23/18 21:00 11/25/18 09:32 1 CAP Lisinopril (Prinivil) 20 mg BID 11/23/18 15:00 11/25/18 09:32 20 MG Pantoprazole Sodium (PROTONIX VIAL for IV PUSH) 40 mg DAILYAC 11/22/18 07:30 11/25/18 09:32 40 MG Piperacillin Sod/ Tazobactam Sod (Zosyn Per Pharmacy) 1 each PRN DAILY PRN 11/20/18 15:15 UNV Piperacillin Sod/ Tazobactam Sod 3.375 gm/Sodium Chloride 50 ml @ 100 mls/hr Q6HRS 11/20/18 18:30 11/25/18 04:55 100 MLS/HR Sodium Chloride 1,000 ml @ 120 mls/hr Q8H20M 11/20/18 15:08 11/20/18 21:07 DC 11/20/18 15:41 120 MLS/HR Objective: Assessment: Acute diverticulitis with perforation and a 1.5 cm abscess sigmoid colon Repeat CT abdo and pelvis 11/23 Slight interval worsening of the paracolic inflammatory process related to the proximal sigmoid colon, again compatible with acute diverticulitis. Leukocytosis, better h/o MRSA CKD CAD Bradycardia Plan: Plan of Care Continue Zosyn for now when ready for dc home, transition to po augmentin for 10 days,script in chart F/U with us in 2 weeks in [facility] if needed D/W ROBERT BURCH MD Nov 25, 2018 10:23
[2018-11-25 11:00] VITALS: BP 134/76
--- NOTE | 2018-11-25 12:59 | PDOC ---
SURGICAL PROGRESS NOTE Subjective tolerating diet passing some rectal mucous, gas Vital Signs Vital Signs Date Time Temp Pulse Resp B/P (MAP) Pulse Ox O2 Delivery O2 Flow Rate FiO2 11/25/18 11:00 99.1 59 18 134/76 (95) 93 Room Air 99.1 I&O Intake and Output 11/25/18 07:00 Intake Total 1620 ml Balance 1620 ml Intake Oral 1620 ml # Voids 2 PATIENT HAS A MARIN: No General: Alert, No acute distress Abdomen: Soft Problem List Problems Medical Problems: (1) Diverticulitis Status: Acute (2) Perforation bowel Status: Acute Assessment/Plan acute diverticulitis with perforation diet as tolerated follow as outpatient d/c ID RICCARDO WHITNEY MD Nov 25, 2018 12:59
[2018-11-25 15:00] VITALS: BP 132/60
[2018-11-25] MEDS ORDERED: AMLO5TAB10 PO (15:45)
[2018-11-25] MEDS ORDERED: LISI-130 PO (15:45)
[2018-11-25] MEDS ORDERED: LACT1CAP19 PO (15:45)
[2018-11-25] MEDS ORDERED: AMOX1TAB61 PO (15:46)
--- NOTE | 2018-11-25 15:55 | PDOC3 ---
Discharge Summary [facility] Date of Admission: Nov 20, 2018 Discharge Date: Nov 25, 2018 Admitting Diagnosis acute sigmoid diverticulitis with perforation Final Diagnosis Problems Medical Problems: (1) Diverticulitis Status: Acute (2) Perforation bowel Status: Acute CONSULTS Nikolay Pillai A.Desai Procedures none Brief Hospital Course Mr. Wayne is a 63 old who presented with abdominal pain and found to have a perforated diverticulum and admitted for IV Zosyn and surgical evaluation. He improved without surgery, became afebrile, WBC normalized, symptoms improved and he is tolerating a diet. F/U CT imaging still showed inflammation in his sigmoid colon area but abscess had essentially resolved. We have together with the input of him and his specialists decided to let him go home on oral antibiotics with close outpatient f/u as he is at risk for recurrent abscess. He had some overnight bradycardia while on the monitor and his BP meds are changed to amlodipine 5 mg and lisinopril 20 mg bid and his carvedilol which he did not recieve while here is stopped. He will also start 875 mg of augmentin this violet with dinner and take x 10 days, he will take a probiotic with it. He can RTW 11/30/18 Disposition home CONDITION AT DISCHARGE: Improved, Stable Diet avoid seeds and popcorn and peanuts Scheduled Atorvastatin Calcium (Lipitor), 1 TAB PO DAILY Carvedilol (Carvedilol ), 1 TAB PO BID, (Reported) Fluticasone Propionate (Flonase Allergy Relief), 2 SPRAYS NS DAILY, (Reported) Lisinopril (Lisinopril), 1 TAB PO DAILY, (Reported) Multivits,Ca,Min/Iron/Fa/Lycop (Centrum Ultra Men's Tablet), 1 EACH PO DAILY, ( Reported) [place]-3/Dha/Epa/Fish Oil (Fish Oil 1,000 Mg Softgel), 2 EACH PO DAILY, (Reported ) Tamsulosin Hcl (Flomax), 0.4 MG PO DAILY, (Reported) Ubidecarenone (Co Q-10), 100 MG PO DAILY, (Reported) Follow Up 1 week Patient Instructions monitor for overnight dizziness, lightheadedness, may need event recorder Roderick SAINZ MD Nov 25, 2018 15:55
--- NOTE | 2018-11-25 16:39 | NUR ---
Discharge Note: AAMIR MCDOWELL JR6 [facility] Discharge instructions and discharge home medications reviewed with Patient and a copy given. All questions have been answered and understanding verbalized. The following instructions and handouts were given: F/U with Nikolay on 01/08 on 11am. F/U with PCP within one week. Discontinued lines and drains: Peripheral IV intact. Patient discharged to Home or Self Care with Family Member via Wheelchair.
== END 2018-11-25 16:39 | disposition home or self-care (01) | DRG 392 ==
LOC: ER 12:42 → 6 SOUTH 15:00
PROVIDERS: ADMIT Family Medicine; ATTEND Family Medicine
DX: K57.20 Diverticulitis of large intestine with perforation and abscess without bleeding (principal); E78.5 Hyperlipidemia, unspecified; J32.9 Chronic sinusitis, unspecified; F17.210 Nicotine dependence, cigarettes, uncomplicated; J44.9 Chronic obstructive pulmonary disease, unspecified; I25.10 Atherosclerotic heart disease of native coronary artery without angina pectoris; K21.9 Gastro-esophageal reflux disease without esophagitis; I25.2 Old myocardial infarction; M19.90 Unspecified osteoarthritis, unspecified site; N18.9 Chronic kidney disease, unspecified; I12.9 Hypertensive chronic kidney disease with stage 1 through stage 4 chronic kidney disease, or unspecified chronic kidney disease; N40.0 Benign prostatic hyperplasia without lower urinary tract symptoms; M47.816 Spondylosis without myelopathy or radiculopathy, lumbar region; M10.9 Gout, unspecified; E66.9 Obesity, unspecified; Z85.51 Personal history of malignant neoplasm of bladder; Z95.5 Presence of coronary angioplasty implant and graft; Z86.14 Personal history of Methicillin resistant Staphylococcus aureus infection; Z79.899 Other long term (current) drug therapy; Z79.82 Long term (current) use of aspirin; Z68.35 Body mass index [BMI] 35.0-35.9, adult
CPT/HCPCS: 36415; 74018; 74177; 80048; 80053; 80076; 81001; 83605; 83690; 84484; 85007; 85025; 87040; 87086; 87641; 93005; 93306; 96365; C9113; J2543; J3010; J7030; Q9966; Q9967; 99285-25

== ENCOUNTER → 2019-07-07 | Outpatient (CLI) | payer BC ==
[~2019-07-07] MED LIST changes: -AMLO1CAP15 PO; +AMLO1CAP54 PO; +AMLO5TAB10 PO; +AMOX1TAB61 PO; +LACT1CAP19 PO; +LISI-130 PO
[2019-07-07 11:41] LABS: BASO # 0.1 x10^3/uL (0.0-0.2); BASO % 1 % (0-3); EOS # 0.3 x10^3/uL (0.0-0.7); EOS % 2 % (0-3); HEMATOCRIT 52.4 % (39.0-53.0); HEMOGLOBIN 17.9 g/dL (13.0-17.5); LYMPH % 23 % (24-48); MEAN CORPUSCULAR HEMOGLOBIN 34 pg (25-35); MEAN CORPUSCULAR HGB CONC 34 g/dL (31-37); MEAN CORPUSCULAR VOLUME 99 fL (79-100); MONO # 1.1 x10^3/uL (0.0-1.1); MONO % 8 % (0-9); NEUT # 8.3 x10^3/uL (1.8-7.7); NEUT % 65 % (31-73); PLATELET COUNT 199 x10^3/uL (140-400); RED CELL DISTRIBUTION WIDTH 12.6 % (11.5-14.5); WHITE BLOOD COUNT 12.7 x10^3/uL (4.0-11.0)
[2019-07-07 11:48] LABS: CALCIUM 9.5 mg/dL (8.5-10.1); CREATININE 1.1 mg/dL (0.7-1.3); GFR 67.4; POTASSIUM 4.4 mmol/L (3.5-5.1); TOTAL BILIRUBIN 0.3 mg/dL (0.2-1.0)
[2019-07-07 11:50] LABS: CHOLESTEROL/HDL RATIO 4.8
--- NOTE | 2019-07-07 15:33 | RAD ---
EXAM: PA and Lateral Views of the Chest DATE: 07/07/2019 12:00 AM INDICATION: Dyspnea COMPARISON: 08/14/2015 07/30/15 FINDINGS: Heart is not enlarged. Atherosclerotic calcifications of aorta are seen. Left hilar prominence. Bilateral perihilar and right lung base airspace opacities may represent developing consolidation or atelectasis. No pleural effusion or pneumothorax. IMPRESSION: 1. Bilateral perihilar and right lung base airspace opacities may represent developing consolidation or atelectasis. 2. Left hilar prominence may be seen with pulmonary arterial hypertension or underlying lymph node or mass. Nonemergent CT can be performed to further assess following resolution of the acute process. Electronically signed by: Felix Nova MD (07/07/2019 3:30 PM) [id number]
== END | disposition home or self-care (01) ==
LOC: LAB 10:46
PROVIDERS: ATTEND Internal Medicine Cardiovascular Disease
DX: I70.0 Atherosclerosis of aorta (principal)
CPT/HCPCS: 36415; 71046; 80053; 80061; 83721; 84443; 85025

== ENCOUNTER → 2019-07-15 | Outpatient (CLI) | payer BC ==
--- NOTE | 2019-07-15 15:20 | CARD ---
MR#: [id number] Date of Study: 07/15/2019 Ordering Physician: BROOKS HEATH, Referring Physician: BROOSK HEATH, Tech: Ellyn Stanford [facility] APPROVED REPORT EXAM: Two-dimensional and M-mode echocardiogram with Doppler and color Doppler. Other Information Quality : Fair Technically limited study due to lung interference/smoking INDICATION Dyspnea RISK FACTORS Smoking 2D DIMENSIONS RVDd2.7 (2.9-3.5cm)Left Atrium(2D)4.5 (1.6-4.0cm) IVSd1.2 (0.7-1.1cm)Aortic Root(2D)2.7 (2.0-3.7cm) LVDd5.1 (3.9-5.9cm)LVOT Diameter2.3 (1.8-2.4cm) PWd1.2 (0.7-1.1cm)LVDs4.2 (2.5-4.0cm) FS (%) 27.0 %SV46.4 ml LVEF(%)55.0 (>50%) Aortic Valve AoV Peak Hero.149.6cm/sAoV VTI25.6cm AO Peak GR.9.0mmHgLVOT Peak Hero.147.0cm/s AO Mean GR.5mmHgAVA (VMAX)4.12cm2 JOSÉ (VTI)3.90cm2 Mitral Valve MV E Spaskfjz16.6cm/sMV DECEL [id number] MV A Rxxydzhr841.5cm/sE/A Ratio0.6 Tricuspid Valve TR P. Iquohevh438sc/sRAP ZLPTAYJM5hwHl TR Peak Gr.18dpLlUYPJ63isMj Pulmonary Vein S1 Amrfdvre78.4cm/sD2 Ejqbuufc13.8cm/s LEFT VENTRICLE The left ventricle is normal size. There is mild concentric left ventricular hypertrophy. The left ve ntricular systolic function is normal. The Ejection Fraction is 55-60%. There is normal LV segmental wall motion. Transmitral Doppler flow pattern is Grade I-abnormal relaxation pattern. RIGHT VENTRICLE The right ventricle is normal size. The right ventricular systolic function is normal. ATRIA The left atrium is mildly dilated. The right atrium size is normal. The interatrial septum is intact with no evidence for an atrial septal defect or patent foramen ovale as noted on 2-D or Doppler imagi ng. AORTIC VALVE The aortic valve is calcified but opens well. Doppler and Color Flow revealed no significant aortic r egurgitation. There is no significant aortic valvular stenosis. MITRAL VALVE The mitral valve is calcified but opens well. Mitral annular calcification is mild. There is no evide nce of mitral valve prolapse. There is no mitral valve stenosis. Doppler and Color Flow revealed no m itral valve regurgitation noted. TRICUSPID VALVE The tricuspid valve is normal in structure and function. Doppler and Color Flow revealed trace tricus pid regurgitation. There is mild pulmonary hypertension. The PA pressure was estimated at 32 mmHg. Th ere is no tricuspid valve stenosis. PULMONIC VALVE The pulmonic valve is not well visualized. Doppler and Color Flow revealed no pulmonic valvular regur gitation. There is no pulmonic valvular stenosis. GREAT VESSELS The aortic root is normal in size. The ascending aorta is normal in size. The IVC is normal in size a nd collapses >50% with inspiration. PERICARDIAL EFFUSION There is no evidence of significant pericardial effusion. Critical Notification Critical Value: No <Conclusion> The left ventricular systolic function is normal. The Ejection Fraction is 55-60%. There is normal LV segmental wall motion. Transmitral Doppler flow pattern is Grade I-abnormal relaxation pattern. Trace tricuspid regurgitation. The PA pressure was estimated at 32 mmHg. There is no evidence of significant pericardial effusion. Signed by : Andrea Ojeda, Electronically Approved : 07/15/2019 15:19:52
--- NOTE | 2019-07-15 17:11 | RAD ---
EXAM: Chest CT without intravenous contrast. HISTORY: Pneumonia. TECHNIQUE: Computed tomographic images of the chest were obtained without contrast. Multiplanar reformatting was performed. *One or more of the following individualized dose reduction techniques were utilized for this examination: 1. Automated exposure control. 2. Adjustment of the mA and/or kV according to patient size. 3. Use of iterative reconstruction technique. COMPARISON: None. FINDINGS: There is partial right middle lobe consolidation containing air bronchograms. There are tiny groundglass and nodular opacities within the medial right lower lobe, the largest of which measures 3 mm. Evaluation for left lower lobe nodules is limited due to respiratory motion. However, there is at least one pleural-based nodule measuring 4 mm. There is emphysema. There is no pneumothorax or pleural effusion. There is cardiomegaly. There is coronary artery and aortic atherosclerosis. No pathologically enlarged lymph node is seen. There are calcified granulomas. There is hepatomegaly and hepatic steatosis. There is adrenal gland thickening with possible superimposed small adenomas. There are degenerative changes throughout the spine. There is no suspicious osseous lesion. IMPRESSION: 1. Partial right middle lobe consolidation with air bronchograms. Follow-up can be performed to confirm resolution and exclude a central obstructing etiology. 2. Scattered tiny groundglass nodular opacities within the right lower lobe, likely infectious or inflammatory. There is also a 4 mm pleural-based nodule within the left lower lobe. Attention at the time of follow-up can be performed to confirm stability or resolution. 3. Emphysema. 4. Hepatomegaly and hepatic steatosis. Electronically signed by: Avelina Jordan MD (07/15/2019 5:08 PM) [facility]
== END | disposition home or self-care (01) ==
LOC: ECHO 14:32
PROVIDERS: ATTEND Internal Medicine Cardiovascular Disease
DX: I08.0 Rheumatic disorders of both mitral and aortic valves (principal); I27.20 Pulmonary hypertension, unspecified; J43.9 Emphysema, unspecified; K76.0 Fatty (change of) liver, not elsewhere classified; R16.0 Hepatomegaly, not elsewhere classified; R91.8 Other nonspecific abnormal finding of lung field; I25.10 Atherosclerotic heart disease of native coronary artery without angina pectoris; R59.9 Enlarged lymph nodes, unspecified; L92.9 Granulomatous disorder of the skin and subcutaneous tissue, unspecified; F17.210 Nicotine dependence, cigarettes, uncomplicated
CPT/HCPCS: 71250; 93306

== ENCOUNTER → 2019-08-02 | Outpatient (CLI) | payer BC ==
--- NOTE | 2019-08-02 10:05 | RAD ---
EXAM: Chest, 2 views. HISTORY: Dyspnea. COMPARISON: CT dated 07/15/2019. FINDINGS: 2 views of the chest are obtained. There has been suspected decrease in partial right middle lobe consolidation. There is emphysema. No pleural effusion or pneumothorax is seen. The heart is normal in size. There is cervical spinal fusion instrumentation. IMPRESSION: Suspected slight decrease in right middle lobe consolidation. Electronically signed by: Avelina Jordan MD (08/02/2019 10:02 AM) [place] [id number]
== END | disposition home or self-care (01) ==
LOC: RAD 09:33
PROVIDERS: ATTEND Family Medicine
DX: J43.8 Other emphysema (principal); Z98.890 Other specified postprocedural states
CPT/HCPCS: 71046

== ENCOUNTER → 2019-08-31 | Outpatient (CLI) | payer BC ==
--- NOTE | 2019-09-01 11:01 | KCIC ---
Examination: LUMBAR SPINE MIN 4V History: Chronic low back pain, surgery 20 years ago Comparison/Correlation: None Findings: Total of 5 images of the lumbar spine were obtained. Facet joint degenerative changes from L4 to S1 noted bilaterally. Minimal anterolisthesis of L4 over L5 is present. Moderate L5-S1 disc space narrowing with vacuum phenomenon noted. No fracture or bone destruction. Impression: [id number] degenerative changes of the lower lumbar spine. Electronically signed by: Josue Ryan MD (09/01/2019 10:58 AM) [facility]
== END | disposition home or self-care (01) ==
LOC: KCIC 15:02
PROVIDERS: ATTEND Family Medicine
DX: M47.817 Spondylosis without myelopathy or radiculopathy, lumbosacral region (principal); M48.07 Spinal stenosis, lumbosacral region; M51.36 Other intervertebral disc degeneration, lumbar region
CPT/HCPCS: 72110

== ENCOUNTER → 2020-04-13 | Outpatient (CLI) | payer BC ==
[2020-04-13 13:30] LABS: BASO # 0.1 x10^3/uL (0.0-0.2); BASO % 1 % (0-3); EOS # 0.4 x10^3/uL (0.0-0.7); EOS % 3 % (0-3); HEMATOCRIT 49.8 % (39.0-53.0); HEMOGLOBIN 17.3 g/dL (13.0-17.5); LYMPH # 2.9 x10^3/uL (1.0-4.8); LYMPH % 24 % (24-48); MEAN CORPUSCULAR HEMOGLOBIN 34 pg (25-35); MEAN CORPUSCULAR HGB CONC 35 g/dL (31-37); MEAN CORPUSCULAR VOLUME 99 fL (79-100); MONO % 8 % (0-9); NEUT % 64 % (31-73); PLATELET COUNT 229 x10^3/uL (140-400); RED BLOOD COUNT 5.05 x10^6/uL (4.30-5.70); RED CELL DISTRIBUTION WIDTH 12.9 % (11.5-14.5); WHITE BLOOD COUNT 12.4 x10^3/uL (4.0-11.0)
[2020-04-13 14:05] LABS: ALBUMIN/GLOBULIN RATIO 1.1 (1.0-1.7); CALCIUM 9.2 mg/dL (8.5-10.1); POTASSIUM 3.9 mmol/L (3.5-5.1); TOTAL BILIRUBIN 0.5 mg/dL (0.2-1.0); TOTAL PROTEIN 7.5 g/dL (6.4-8.2)
[2020-04-13 14:06] LABS: CHOLESTEROL/HDL RATIO 5.4
== END | disposition home or self-care (01) ==
LOC: LAB 13:15
PROVIDERS: ATTEND Internal Medicine Cardiovascular Disease
DX: I25.10 Atherosclerotic heart disease of native coronary artery without angina pectoris (principal)
CPT/HCPCS: 36415; 80053; 80061; 83721; 85025